=== PATIENT | female | born 1970 | race Caucasian/White ===

== ENCOUNTER 2022-01-17 23:20 | Emergency (ER) | payer SELFPAY ==
[2022-01-17 23:30] VITALS: BP 146/82; PULSE 87; RESP 20; TEMP 36.6; O2SAT 100; BMI 23.0
--- NOTE | 2022-01-17 23:43 | CRLHL7_ITS ---
For Patients: As a result of the Century Cures Act, medical imaging exams and procedure reports are released immediately into your electronic medical record. You may view this report before your referring provider. If you have questions, please contact your health care provider. INDICATION: Right flank pain TECHNIQUE: CT abdomen and pelvis without contrast. COMPARISON: None FINDINGS: Lower chest: Unremarkable. Liver: Unremarkable. Spleen: Unremarkable. Pancreas: Unremarkable. Gallbladder and bile ducts: The gallbladder is not clearly seen and may be collapsed or surgically absent. Adrenal glands: Unremarkable. Kidneys: Unremarkable. No kidney or ureteral stones and no hydronephrosis. GI tract: Multiple loops of dilated small bowel measuring to 5.0 cm. Transition point is not identified. Moderate amount of stool in the ascending colon. Remainder of the colon is decompressed. No free air or pneumatosis. Status post gastric surgery. Appendix is not seen. Vascular structures: Unremarkable. Lymph nodes: Unremarkable. Miscellaneous: Status post ventral herniorrhaphy. No free air or significant free fluid. Pelvic Organs: 4.5 x 3.6 cm cystic lesion in the right adnexa. Bones: Unremarkable for age. IMPRESSION: Small-bowel obstruction. A definite transition point is not seen on this exam. Greater than 4 cm cystic lesion in the right adnexa. Recommend outpatient pelvic ultrasound for further evaluation. Status post gastric surgery. The gallbladder is not seen and may be collapsed or surgically absent. Status post ventral herniorrhaphy. Please note that all CT scans at this facility use dose modulation, iterative reconstruction, and/or weight-based dosing when appropriate to reduce radiation dose to as low as reasonably achievable. Dictated by Katlyn Melendez MD @ 01/18/2022 1:32:57 AM (Electronically Signed)
--- NOTE | 2022-01-17 23:44 | ED_ITS ---
HPI - General Adult General Chief complaint: Flank Pain <Buzz Garcia MD - Last Filed: 01/18/22 00:22> Stated complaint: Blood in Urine <Buzz Garcia MD - Last Filed: 01/18/22 00:22> Time Seen by Provider: 01/17/22 23:37 <Buzz Garcia MD - Last Filed: 01/18/22 00:22> History of Present Illness HPI narrative: This 51-year-old female comes in reporting abdominal pain that began about 12 hours ago. She has a history of kidney stones. She states that the pain is more located on the right side now including some right flank pain. She has some increased pressure sensation when trying to void urine. She noted some william blood in her urine today. <Buzz Garcia MD - Last Filed: 01/18/22 00:22> Related Data Home medications: Home Medications Medication Instructions Recorded Confirmed No Known Home Medications 01/17/22 01/17/22 <Buzz Garcia MD - Last Filed: 01/18/22 00:22> Allergies/adverse reactions: Allergies Allergy/AdvReac Type Severity Reaction Status Date / Time No Known Drug Allergies Allergy Verified 01/17/22 23:34 <Buzz Garcia MD - Last Filed: 01/18/22 00:22> Review of Systems Status of ROS: Reports: 10 or more systems reviewed and unremarkable except as noted in History and below <Buzz Garcia MD - Last Filed: 01/18/22 00:22> Narrative: Constitutional: No fevers, no weight gain or loss. Eyes: No discharge. No vision changes. HENT: No congestion, no sore throat, no ear pain. Cardiovascular: No chest pain, no palpitations. Respiratory: No shortness of breath, no wheezes, no cough. Gastrointestinal: Abdominal pain with nausea as described above. Genitourinary: Increased pressure and gross hematuria. Musculoskeletal: Normal range of motion. Skin: No rashes, no pruritis. Neurological: No dizziness, weakness, sensory change, speech change. Endo/Heme/Allergies: No bruising or bleeding. No polydipsia. Pysch: no suicidality, no anxiety, no insomnia. All other systems reviewed and are negative. <Buzz Garcia MD - Last Filed: 01/18/22 00:22> [facility] Social History: Social History Smoking Status: Current every day smoker What tobacco products do you use: cigarettes Smoking packs per day: 1 Smoking cigarettes per day: 20.0 Years smoked: 12 Smoking pack-years: 12.00 Do you use any of these nicotine containing products: None Second hand tobacco smoke exposure: No How often do you have a drink containing alcohol: never AUDIT-C Alcohol total score: 0 Non-prescribed substance use: denies use <Buzz Garcia MD - Last Filed: 01/18/22 00:22> Exam Narrative: Exam Narrative: Constitutional: Well-developed, well-nourished, no acute distress. HEENT: Normocephalic, atraumatic. Neck: Normal range of motion. Nontender. Supple. Heart: Intact distal pulses. Lungs: No chest discomfort. No wheezes, rhonchi, or rales. Abdomen: Tenderness in the right abdomen with flank pain when percussing over her right kidney. Back: Normal range of motion. Extremities: Normal range of motion. No injury. Skin: Intact. No rash. Warm. No erythema or pallor. Neurologic: No altered sensation. No weakness. Alert and oriented. Psychiatric: No suicidality. No anxiety or depression. No insomnia. Nursing notes and vitals signs are reviewed. <Buzz Garcia MD - Last Filed: 01/18/22 00:22> Const: Vital Signs, click to edit/add: Vital Signs - 24 hr 01/17/22 23:30 Temperature 97.9 F Pulse Rate [Right Pulse Oximeter] 87 Respiratory Rate 20 Blood Pressure [Ri ght Upper Arm] 146/82 H Pulse Oximetry 100 Oxygen Delivery Me thod Room Air <Buzz Garcia MD - Last Filed: 01/18/22 00:22> Vital Signs, click to edit/add: Vital Signs - 24 hr 01/17/22 23:30 Temperature 97.9 F Pulse Rate [Right Pulse Oximeter] 87 Respiratory Rate 20 Blood Pressure [Ri ght Upper Arm] 146/82 H Pulse Oximetry 100 Oxygen Delivery Me thod Room Air <Henrry Olivera MD - Last Filed: 01/18/22 01:43> Course Reevaluation(s) Reevaluation #1: Labs are reassuring, CT scan demonstrates findings consistent with small- bowel obstruction. Patient recheck, she is sleeping comfortably. She reports bowel movement yesterday as well as passing gas in the emergency department. Tolerating oral intake in the department now. She is stable for discharge, liquid diet for 24 hours, follow-up with primary care regarding her adnexal cyst. <Henrry Olivera MD - Last Filed: 01/18/22 01:43> Time: 01:36 <Henrry Olivera MD - Last Filed: 01/18/22 01:43> Vital Signs Vital signs: Initial Vital Signs Temperature 97.9 F 01/17/22 23:30 Temperature Source Temporal Artery Scan 01/17/22 23:30 Pulse Rate 87 01/17/22 23:30 Pulse Rhythm 01/17/22 23:30 Pulse Strength 3+ Normal 01/17/22 23:30 Respiratory Rate 20 01/17/22 23:30 Blood Pressure 146/82 H 01/17/22 23:30 Blood Pressure Mean 103 01/17/22 23:30 Blood Pressure Position Sitting 01/17/22 23:30 Pulse Oximetry 100 01/17/22 23:30 Oxygen Delivery Method 01/17/22 23:30 Vital Signs Temperature 97.9 F 01/17/22 23:30 Pulse Rate 87 01/17/22 23:30 Respiratory Rate 20 01/17/22 23:30 Blood Pressure 146/82 H 01/17/22 23:30 Pulse Oximetry 100 01/17/22 23:30 Oxygen Delivery Method 01/17/22 23:30 Temperature 97.9 F 01/17/22 23:30 Pulse Rate 87 01/17/22 23:30 Respiratory Rate 20 01/17/22 23:30 Blood Pressure 146/82 H 01/17/22 23:30 Pulse Oximetry 100 01/17/22 23:30 Oxygen Delivery Method 01/17/22 23:30 <Buzz Garcia MD - Last Filed: 01/18/22 00:22> Initial Vital Signs Temperature 97.9 F 01/17/22 23:30 Temperature Source Temporal Artery Scan 01/17/22 23:30 Pulse Rate 87 01/17/22 23:30 Pulse Rhythm 01/17/22 23:30 Pulse Strength 3+ Normal 01/17/22 23:30 Respiratory Rate 20 01/17/22 23:30 Blood Pressure 146/82 H 01/17/22 23:30 Blood Pressure Mean 103 01/17/22 23:30 Blood Pressure Position Sitting 01/17/22 23:30 Pulse Oximetry 100 01/17/22 23:30 Oxygen Delivery Method 01/17/22 23:30 Vital Signs Temperature 97.9 F 01/17/22 23:30 Pulse Rate 87 01/17/22 23:30 Respiratory Rate 20 01/17/22 23:30 Blood Pressure 146/82 H 01/17/22 23:30 Pulse Oximetry 100 01/17/22 23:30 Oxygen Delivery Method 01/17/22 23:30 Temperature 97.9 F 01/17/22 23:30 Pulse Rate 87 01/17/22 23:30 Respiratory Rate 20 01/17/22 23:30 Blood Pressure 146/82 H 01/17/22 23:30 Pulse Oximetry 100 01/17/22 23:30 Oxygen Delivery Method 01/17/22 23:30 <Henrry Olivera MD - Last Filed: 01/18/22 01:43> Medical Decision Making MDM Narrative Medical decision making narrative: This 51-year-old female comes in with abdominal pain and right flank pain which is suspicious for a kidney stone. She did have gross hematuria also. She has a history of kidney stones. An IV was established where she received 4 mg of Zofran and Toradol [address] here and will be able to drive if this medicine provide sufficient relief. Urinalysis, lab results, and CT imaging results of the abdomen and pelvis are pending at the end of my shift. Care for this patient is transferred to Dr. Olivera. <Buzz Garcia MD - Last Filed: 01/18/22 00:22> Lab Data Labs: Lab Results 01/17/22 01/17/22 01/17/22 Range/Units 23:44 23:45 23:47 WBC 8.65 (4.50-11.00) K/uL RBC 4.98 (4.00-5.20) m/uL Hgb 10.3 L (12.0-16.0) gm/dL Hct 34.2 (33.0-51.0) % MCV 69 L (80-100) fL MCH 21 L (26-34) pg MCHC 30 L (32-36) gm/dL RDW Coeff of Wu 19.0 H (11.5-15.5) % Plt Count 510 H (140-440) K/uL Neut % (Auto) 71.3 (42.0-72.0) % Lymph % (Auto) 17.7 L (20-44) % [place] % (Auto) 5.1 (0.0-11.0) % Eos % (Auto) 4.7 (0.0-7.0) % Baso % (Auto) 0.6 (0.0-3.0) % Neut # (Auto) 6.17 (1.7-7.0) K/uL Lymph # (Auto) 1.50 (0.90-2.90) K/uL [place] # (Auto) 0.40 (0.00-0.90) K/UL Eos # (Auto) 0.41 (0.00-0.50) K/uL Baso # (Auto) 0.05 (0.00-0.30) K/uL Abs Immat Gran (auto) 0.05 (0.00-0.30) K/uL Sodium 135 (135-149) mmol/L Potassium 4.2 (3.6-5.1) mmol/L Chloride 103 (96-114) mmol/L Carbon Dioxide 25 (20-32) mmol/L BUN 17 (7-30) mg/dL Creatinine 0.5 (0.5-1.5) mg/dL Estimated Creat Clear 108.88 Estimated GFR 113 ml/min Glucose 113 (60-115) mg/dL Calcium 9.4 (8.4-10.6) mg/dL Urine Color Yellow (Yellow) Urine Appearance Cloudy A (Clear) Urine pH 6.0 (5.0-8.5) Ur Specific [place] 1.025 (1.000-1.030) Urine Protein Negative (Negative) Urine Glucose (UA) Negative (Negative) Urine Ketones Trace A (Negative) Urine Blood Trace-intact A (Negative) Urine Nitrite Negative (Negative) Urine Bilirubin Negative (Negative) Urine Urobilinogen 0.2 (0.2-1.0) Ur Leukocyte Esterase Trace A (Negative) Urine RBC 0-2 (0-2) Urine WBC 2-5 (0-5) Ur Squamous Epith Cells Moderate A (None-Few) Urine Bacteria Moderate A (None) <Buzz Garcia MD - Last Filed: 01/18/22 00:22> Lab Results 01/17/22 01/17/22 01/17/22 Range/Units 23:44 23:45 23:47 WBC 8.65 (4.50-11.00) K/uL RBC 4.98 (4.00-5.20) m/uL Hgb 10.3 L (12.0-16.0) gm/dL Hct 34.2 (33.0-51.0) % MCV 69 L (80-100) fL MCH 21 L (26-34) pg MCHC 30 L (32-36) gm/dL RDW Coeff of Wu 19.0 H (11.5-15.5) % Plt Count 510 H (140-440) K/uL Neut % (Auto) 71.3 (42.0-72.0) % Lymph % (Auto) 17.7 L (20-44) % [place] % (Auto) 5.1 (0.0-11.0) % Eos % (Auto) 4.7 (0.0-7.0) % Baso % (Auto) 0.6 (0.0-3.0) % Neut # (Auto) 6.17 (1.7-7.0) K/uL Lymph # (Auto) 1.50 (0.90-2.90) K/uL [place] # (Auto) 0.40 (0.00-0.90) K/UL Eos # (Auto) 0.41 (0.00-0.50) K/uL Baso # (Auto) 0.05 (0.00-0.30) K/uL Abs Immat Gran (auto) 0.05 (0.00-0.30) K/uL Sodium 135 (135-149) mmol/L Potassium 4.2 (3.6-5.1) mmol/L Chloride 103 (96-114) mmol/L Carbon Dioxide 25 (20-32) mmol/L BUN 17 (7-30) mg/dL Creatinine 0.5 (0.5-1.5) mg/dL Estimated Creat Clear 108.88 Estimated GFR 113 ml/min Glucose 113 (60-115) mg/dL Calcium 9.4 (8.4-10.6) mg/dL Urine Color Yellow (Yellow) Urine Appearance Cloudy A (Clear) Urine pH 6.0 (5.0-8.5) Ur Specific [place] 1.025 (1.000-1.030) Urine Protein Negative (Negative) Urine Glucose (UA) Negative (Negative) Urine Ketones Trace A (Negative) Urine Blood Trace-intact A (Negative) Urine Nitrite Negative (Negative) Urine Bilirubin Negative (Negative) Urine Urobilinogen 0.2 (0.2-1.0) Ur Leukocyte Esterase Trace A (Negative) Urine RBC 0-2 (0-2) Urine WBC 2-5 (0-5) Ur Squamous Epith Cells Moderate A (None-Few) Urine Bacteria Moderate A (None) <Henrry Olivera MD - Last Filed: 01/18/22 01:43> Imaging Data CT scan - abdomen: Attestation: I have reviewed the pertinent imaging results. <Henrry Olivera MD - Last Filed: 01/18/22 01:43> My impression: Small-bowel dilatation, no hydronephrosis or ureteral stones noted, also right adnexal cyst <Henrry Olivera MD - Last Filed: 01/18/22 01:43> Radiologist's impression: IMPRESSION: Small-bowel obstruction. A definite transition point is not seen on this exam. Greater than 4 cm cystic lesion in the right adnexa. Recommend outpatient pelvic ultrasound for further evaluation. Status post gastric surgery. The gallbladder is not seen and may be collapsed or surgically absent. Status post ventral herniorrhaphy. <Henrry Olivera MD - Last Filed: 01/18/22 01:43> Discharge Plan Discharge Clinical Impression: Abdominal pain, Adnexal cyst, Small bowel obstruction <Buzz Garcia MD - Last Filed: 01/18/22 00:22> Patient Disposition: Home, Self-Care <Buzz Garcia MD - Last Filed: 01/18/22 00:22> Condition: Improved <Buzz Garcia MD - Last Filed: 01/18/22 00:22> Instructions: Bowel Obstruction (ED) <Buzz Garcia MD - Last Filed: 01/18/22 00:22> Additional Instructions: Liquid diet for 24 hours. Take medication for nausea as prescribed. If you are having increasing pain or unable to tolerate liquids, return to the emergency department. There is a cyst on the right ovary. Should have an ultrasound with your primary care doctor to follow this. <Buzz Garcia MD - Last Filed: 01/18/22 00:22> Discharge Diet: Clear Liquid <Buzz Garcia MD - Last Filed: 01/18/22 00:22> Clear Liquid <Henrry Olivera MD - Last Filed: 01/18/22 01:43> Prescriptions: No Action No Known Home Medications <Buzz Garcia MD - Last Filed: 01/18/22 00:22> Follow Up/Referrals: Erica Adrian MD [Primary Care Provider] - <Buzz Garcia MD - Last Filed: 01/18/22 00:22> Stand Alone Forms: [employer] [facility] Info Instructions <Buzz Garcia MD - Last Filed: 01/18/22 00:22>
[2022-01-17] MEDS: ONDANSETRON 2 MG/ML inj 4 MG IVP (23:57)
[2022-01-17] MEDS: KETOROLAC 30 MG/ML inj IVP (23:57)
[2022-01-17 23:59] LABS: Basophils Absolute Auto 0.05 K/uL (0.00-0.30); Basophils Percent Auto 0.6 % (0.0-3.0); Eosinophils Absolute Auto 0.41 K/uL (0.00-0.50); Eosinophils Percent Auto 4.7 % (0.0-7.0); Hematocrit 34.2 % (33.0-51.0); Hemoglobin* 10.3 gm/dL (12.0-16.0); Immature Granulocytes Abs Auto 0.05 K/uL (0.00-0.30); Lymphocytes Percent Auto 17.7 % (20-44); Mean Corpuscular HGB Conc 30 gm/dL (32-36); Mean Corpuscular Hemoglobin 21 pg (26-34); Mean Corpuscular Volume 69 fL (80-100); Monocytes Percent Auto 5.1 % (0.0-11.0); Neutrophils Absolute Auto 6.17 K/uL (1.7-7.0); Neutrophils Percent Auto 71.3 % (42.0-72.0); Platelet Count* 510 K/uL (140-440); Red Blood Count 4.98 m/uL (4.00-5.20); White Blood Count* 8.65 K/uL (4.50-11.00)
[2022-01-18] LABS: Appearance Urine Cloudy (Clear); Bilirubin Urine Negative (Negative); Blood Urine Trace-intact (Negative); Color Urine Yellow (Yellow); Glucose Urine Negative (Negative); Ketones Urine Trace (Negative); Leukocyte Esterase Urine Trace (Negative); Nitrite Urine Negative (Negative); Protein Urine Negative (Negative); Specific Gravity Urine 1.025 (1.000-1.030); Urobilinogen Urine 0.2 (0.2-1.0)
[2022-01-18 00:04] LABS: Slide Review Reflex No
[2022-01-18 00:19] LABS: Bacteria Urine Moderate; RBC Urine 0-2 (0-2); Squamous Epithelial Cell Urine Moderate (None-Few)
[2022-01-18 00:22] LABS: Chloride* 103 mmol/L (96-114); Potassium* 4.2 mmol/L (3.6-5.1); Sodium* 135 mmol/L (135-149)
[2022-01-18 00:24] LABS: Blood Urea Nitrogen* 17 mg/dL (7-30); Carbon Dioxide* 25 mmol/L (20-32); Creatinine* 0.5 mg/dL (0.5-1.5); Est. Creatinine Clearance* 108.88; Estimated Glomerular Filt Rate 113 ml/min; Glucose* 113 mg/dL (60-115)
[2022-01-18 00:25] LABS: Calcium* 9.4 mg/dL (8.4-10.6)
[2022-01-18 01:49] VITALS: BP 116/73; PULSE 73; RESP 16; O2SAT 98
== END 2022-01-18 01:52 | disposition home or self-care (01) ==
PROVIDERS: Emergency Provider Emergency Medicine Emergency Medical Services; PCP Family Medicine
DX: N83.8 Other noninflammatory disorders of ovary, fallopian tube and broad ligament (principal); K56.609 Unspecified intestinal obstruction, unspecified as to partial versus complete obstruction
CPT/HCPCS: 36415; 74176; 80048; 81001; 85025; 87086; 96374; 96375; 99284; J1885; J2405

== ENCOUNTER 2022-02-20 11:45 | Inpatient (IN) | payer SELFPAY ==
[2022-02-20] VITALS (18 sets, daily range): BP systolic 126–166; BP diastolic 65–115; PULSE 75–101; RESP 12–18; TEMP 36.1–37.4; O2SAT 74–98
--- NOTE | 2022-02-20 14:36 | CRLHL7_ITS ---
For Patients: As a result of the 21st Century Cures Act, medical imaging exams and procedure reports are released immediately into your electronic medical record. You may view this report before your referring provider. If you have questions, please contact your health care provider. INDICATION: Abdominal pain and vomiting. TECHNIQUE: IV contrast-enhanced CT abdomen and pelvis. 59 mL Isovue-370 injected. COMPARISON: None. FINDINGS: Postoperative changes of gastric bypass. The pouch and a portion of the gastrojejunostomy are herniated above the diaphragm. Diffuse dilation of the small and large bowel with air and fluid, including the afferent and efferent limbs of the bypass. Transition point is within the mid abdomen on image 92 of series 2. This appears to be downstream of the jejunojejunostomy. There is some swirling of the mesentery in the area of the transition point and internal hernia is not excluded. No free air. No portal venous gas or pneumatosis. Solid organs are unremarkable. Gallbladder has been removed. The common bile duct is dilated measuring up to 2.2 cm and there is moderate intrahepatic biliary dilation. Mild soft tissue prominence at near the ampulla see image 41 of series 4. A 6 x 3 mm pulmonary nodule right middle lobe on image 3 of series 3. Prior ventral hernia repair. IMPRESSION: 1. Gastric bypass with herniation of the pouch and part of the gastrojejunostomy. 2. Small bowel obstruction with transition point in the mid abdomen almost certainly distal to the jejunojejunostomy. Cannot exclude internal hernia. 3. Dilated biliary tree with soft tissue prominence at the fibula broader. Correlation with liver enzymes, comparison with any prior abdominal imaging are recommended. ERCP she be considered when clinically appropriate. 4. 6 x 3 mm right middle lobe pulmonary nodule. [employer] GUID[employer]INES - SOLID NODULES: SINGLE LOW RISK - nodule less than 6 mm: No routine follow-up. - nodule 6-8 mm: CT at 6-12 months, then consider CT at 18-24 months. - nodule greater than 8 mm: Consider CT at 3 months, PET/CT or tissue sampling. SINGLE HIGH RISK - nodule less than 6 mm: Optional CT at 12 months. - nodule 6-8 mm: CT at 6-12 months, then CT at 18-24 months. - nodule greater than 8 mm: Consider CT at 3 months, PET/CT or tissue sampling. MULTIPLE LOW RISK - nodule less than 6 mm: No routine follow-up. - nodule 6-8 mm: CT at 3-6 months, then consider CT at 18-24 months. - nodule greater than 8 mm: CT at 3-6 months, then consider CT at 18-24 months. MULTIPLE HIGH RISK - nodule less than 6 mm: Optional CT at 12 months. - nodule 6-8 mm: CT at 3-6 months, then at 18-24 months. - nodule greater than 8 mm: CT at 3-6 months, then at 18-24 months. Dictated by Alex Oreilly MD @ 02/20/2022 4:21:52 PM Please note that all CT scans at this facility use dose modulation, iterative reconstruction, and/or weight-based dosing when appropriate to reduce radiation dose to as low as reasonably achievable. Dictated by: Alex Oreilly MD @ 02/20/2022 16:21:57 (Electronically Signed)
--- NOTE | 2022-02-20 14:38 | ED.GENADULT ---
HPI - General Adult General Chief complaint: Nausea/Vomiting Stated complaint: Nausea and vomiting for 3 days Time Seen by Provider: 02/20/22 14:29 History of Present Illness HPI narrative: This 51-year-old female comes in with her father who brings her in. She has had vomiting for the past 2-3 weeks. Prior to this she was losing weight. She does go to work but currently is living in a motel. She does arrive with normal vital signs but does have a dry mouth and continues to have episodes of nausea and vomiting. She complains of severe abdominal pain that she states is constant and has some spikes of worsening pain. She does not report any fever or diarrhea. She states that she is not on any medications and does not report any use of alcohol or street drugs. Related Data Home Medications Medication Instructions Recorded Confirmed No Known Home Medications 02/20/22 02/20/22 Allergies Allergy/AdvReac Type Severity Reaction Status Date / Time No Known Drug Allergies Allergy Verified 02/20/22 12:12 Review of Systems Status of ROS: Reports: 10 or more systems reviewed and unremarkable except as noted in History and below Narrative: Constitutional: No fevers. She has had unintentional weight loss recently. Eyes: No discharge. No vision changes. HENT: No congestion, no sore throat, no ear pain. Cardiovascular: No chest pain, no palpitations. Respiratory: No shortness of breath, no wheezes, no cough. Gastrointestinal: Abdominal pain with nausea and vomiting. Genitourinary: No dysuria, no hematuria. Musculoskeletal: Normal range of motion. Skin: No rashes, no pruritis. Neurological: No dizziness, weakness, sensory change, speech change. Endo/Heme/Allergies: No bruising or bleeding. No polydipsia. Pysch: no suicidality, no anxiety, no insomnia. All other systems reviewed and are negative. PFSH PFSH Medical History (Updated 02/20/22 @ 19:58 by Buzz Garcia MD) Anxiety Depression Surgical History (Updated 02/20/22 @ 19:33 by Alanna Edmondson MD) Gastric bypass status for obesity S/P appendectomy S/P cholecystectomy S/P repair of ventral hernia Social History (Updated 02/20/22 @ 19:33 by Alanna Edmondson MD) Narrative: Patient is a smoker, she denies drinking alcohol. She works as a CORPORATE EVENT PLANNER. Smoking Status: Smoker, status unknown Non-prescribed substance use: declined to answer Exam Narrative: Exam Narrative: Constitutional: She appears to be in distress related to vomiting and abdominal pain symptoms. HEENT: Normocephalic, atraumatic. Neck: Normal range of motion. Nontender. Supple. Heart: Regular. No murmurs. Normal rate. Intact distal pulses. Lungs: Clear to auscultation. No chest discomfort. No wheezes, rhonchi, or rales. Abdomen: Decreased bowel sounds. Diffuse tenderness. Rebound tenderness is present. Genitalia: Deferred. Back: No midline tenderness. Normal range of motion. Extremities: Normal range of motion. No injury. No pedal edema. Skin: Intact. No rash. Warm. No erythema or pallor. Neurologic: No altered sensation. No weakness. Alert and oriented. Psychiatric: No suicidality. No anxiety or depression. No insomnia. Nursing notes and vitals signs are reviewed. Const: Vital Signs, click to edit/add: Vital Signs - 24 hr 02/20/22 12:09 02/20/22 17:00 02/20/22 18:00 Temperature 97.0 F L Pulse Rate [Right Pulse Oximeter] 75 80 89 Respiratory Rate 18 18 16 Blood Pressure [Ri ght Upper Arm] 131/83 126/65 127/95 H Pulse Oximetry 98 98 89 Oxygen Delivery Me thod Room Air Room Air Room Air 02/20/22 18:30 02/20/22 18:45 Temperature Pulse Rate [Right Pulse Oximeter] 89 101 H Respiratory Rate 12 18 Blood Pressure [Ri ght Upper Arm] 141/109 H 143/115 H Pulse Oximetry 74 L 90 Oxygen Delivery Me thod Room Air Room Air Course Vital Signs Vital signs: Initial Vital Signs Temperature 97.0 F L 02/20/22 12:09 Temperature Source Temporal Artery Scan 02/20/22 12:09 Pulse Rate 75 02/20/22 12:09 Respiratory Rate 18 02/20/22 12:09 Blood Pressure 131/83 02/20/22 12:09 Blood Pressure Mean 99 02/20/22 12:09 Blood Pressure Position Sitting 02/20/22 12:09 Pulse Oximetry 98 02/20/22 12:09 Oxygen Delivery Method 02/20/22 12:09 Vital Signs Temperature 97.0 F L 02/20/22 12:09 Pulse Rate 75 02/20/22 12:09 Respiratory Rate 18 02/20/22 12:09 Blood Pressure 131/83 02/20/22 12:09 Pulse Oximetry 98 02/20/22 12:09 Oxygen Delivery Method 02/20/22 12:09 Temperature 97.0 F L 02/20/22 12:09 Pulse Rate 101 H 02/20/22 18:45 Respiratory Rate 18 02/20/22 18:45 Blood Pressure 143/115 H 02/20/22 18:45 Pulse Oximetry 90 02/20/22 18:45 Oxygen Delivery Method 02/20/22 18:45 Medical Decision Making MDM Narrative Medical decision making narrative: This patient comes in with severe abdominal pain and associated anorexia. An IV was established where she received a L of normal saline, Dilaudid 0.5 mg, and Zofran [address] scan of the abdomen and pelvis is obtained and returns with evidence of the bowel obstruction likely complicated by her gastric bypass that occurred decades ago. I did consult with the surgeon on-call, Dr. Tenorio, who reviewed images and recommended surgery sooner than later. There were no beds available for transfer so Dr. Souza's and did take her to surgery at this facility. She will be admitted to the hospital postoperatively. Lab Data Labs: Lab Results 02/20/22 02/20/22 02/20/22 Range/Units 15:08 15:08 15:08 WBC 6.81 (4.50-11.00) K/uL RBC 6.61 H (4.00-5.20) m/uL Hgb 13.6 (12.0-16.0) gm/dL Hct 44.0 (33.0-51.0) % MCV 67 L (80-100) fL MCH 21 L (26-34) pg MCHC 31 L (32-36) gm/dL RDW Coeff of Wu 20.5 H (11.5-15.5) % Plt Count 486 H (140-440) K/uL Neut % (Auto) 66.1 (42.0-72.0) % Lymph % (Auto) 19.1 L (20-44) % [place] % (Auto) 13.4 H (0.0-11.0) % Eos % (Auto) 1.0 (0.0-7.0) % Baso % (Auto) 0.3 (0.0-3.0) % Neut # (Auto) 4.50 (1.7-7.0) K/uL Lymph # (Auto) 1.30 (0.90-2.90) K/uL [place] # (Auto) 0.90 (0.00-0.90) K/UL Eos # (Auto) 0.07 (0.00-0.50) K/uL Baso # (Auto) 0.02 (0.00-0.30) K/uL Abs Immat Gran (auto) 0.01 (0.00-0.30) K/uL Sodium 137 (135-149) mmol/L Potassium 4.1 (3.6-5.1) mmol/L Chloride 94 L (96-114) mmol/L Carbon Dioxide 25 (20-32) mmol/L BUN 44 H (7-30) mg/dL Creatinine 0.9 (0.5-1.5) mg/dL Estimated GFR 77 ml/min Glucose 119 H (60-115) mg/dL Calcium 9.7 (8.4-10.6) mg/dL Total Bilirubin 0.7 Cancelled (0.1-1.5) mg/dL Direct Bilirubin 0.2 Cancelled (0.0-0.5) mg/dL AST 34 Cancelled (12-35) U/L ALT 23 Cancelled (4-35) U/L Alkaline Phosphatase 99 Cancelled (40-150) U/L Total Protein 8.3 Cancelled (6.0-8.3) g/dL Albumin 5.1 H Cancelled (3.3-5.0) g/dL Lipase 48 Cancelled (23-300) U/L TSH (0.270-4.20) uIU/mL 02/20/22 02/20/22 Range/Units 15:08 16:00 WBC (4.50-11.00) K/uL RBC (4.00-5.20) m/uL Hgb (12.0-16.0) gm/dL Hct (33.0-51.0) % MCV (80-100) fL MCH (26-34) pg MCHC (32-36) gm/dL RDW Coeff of Wu (11.5-15.5) % Plt Count (140-440) K/uL Neut % (Auto) (42.0-72.0) % Lymph % (Auto) (20-44) % [place] % (Auto) (0.0-11.0) % Eos % (Auto) (0.0-7.0) % Baso % (Auto) (0.0-3.0) % Neut # (Auto) (1.7-7.0) K/uL Lymph # (Auto) (0.90-2.90) K/uL [place] # (Auto) (0.00-0.90) K/UL Eos # (Auto) (0.00-0.50) K/uL Baso # (Auto) (0.00-0.30) K/uL Abs Immat Gran (auto) (0.00-0.30) K/uL Sodium (135-149) mmol/L Potassium (3.6-5.1) mmol/L Chloride (96-114) mmol/L Carbon Dioxide (20-32) mmol/L BUN (7-30) mg/dL Creatinine (0.5-1.5) mg/dL Estimated GFR ml/min Glucose (60-115) mg/dL Calcium (8.4-10.6) mg/dL Total Bilirubin (0.1-1.5) mg/dL Direct Bilirubin (0.0-0.5) mg/dL AST (12-35) U/L ALT (4-35) U/L Alkaline Phosphatase (40-150) U/L Total Protein (6.0-8.3) g/dL Albumin 4.5 (3.3-5.0) g/dL Lipase (23-300) U/L TSH 1.350 (0.270-4.20) uIU/mL Imaging Data CT scan - abdomen: Radiologist's impression: FINDINGS: Postoperative changes of gastric bypass. The pouch and a portion of the gastrojejunostomy are herniated above the diaphragm. Diffuse dilation of the small and large bowel with air and fluid, including the afferent and efferent limbs of the bypass. Transition point is within the mid abdomen on image 92 of series 2. This appears to be downstream of the jejunojejunostomy. There is some swirling of the mesentery in the area of the transition point and internal hernia is not excluded. No free air. No portal venous gas or pneumatosis. Solid organs are unremarkable. Gallbladder has been removed. The common bile duct is dilated measuring up to 2.2 cm and there is moderate intrahepatic biliary dilation. Mild soft tissue prominence at near the ampulla see image 41 of series 4. A 6 x 3 mm pulmonary nodule right middle lobe on image 3 of series 3. Prior ventral hernia repair. IMPRESSION: 1. Gastric bypass with herniation of the pouch and part of the gastrojejunostomy. 2. Small bowel obstruction with transition point in the mid abdomen almost certainly distal to the jejunojejunostomy. Cannot exclude internal hernia. 3. Dilated biliary tree with soft tissue prominence at the fibula broader. Correlation with liver enzymes, comparison with any prior abdominal imaging are recommended. ERCP she be considered when clinically appropriate. 4. 6 x 3 mm right middle lobe pulmonary nodule. Discharge Plan Discharge Clinical Impression: Small bowel obstruction Patient Disposition: Admitted As Inpatient Condition: Unchanged
[2022-02-20] MEDS: 0.9 % SODIUM CHLORIDE 1000 ml 1,000 ML IV (15:21)
[2022-02-20] MEDS: HYDROmorphone 0.5 mg/0.5 ml inj IVP ×3 (15:22→23:24)
[2022-02-20] MEDS: ONDANSETRON 2 MG/ML inj 4 MG IVP (15:22)
[2022-02-20 15:33] LABS: Basophils Absolute Auto 0.02 K/uL (0.00-0.30); Basophils Percent Auto 0.3 % (0.0-3.0); Eosinophils Absolute Auto 0.07 K/uL (0.00-0.50); Hemoglobin* 13.6 gm/dL (12.0-16.0); Immature Granulocytes Abs Auto 0.01 K/uL (0.00-0.30); Lymphocytes Percent Auto 19.1 % (20-44); Mean Corpuscular HGB Conc 31 gm/dL (32-36); Mean Corpuscular Hemoglobin 21 pg (26-34); Mean Corpuscular Volume 67 fL (80-100); Monocytes Percent Auto 13.4 % (0.0-11.0); Neutrophils Percent Auto 66.1 % (42.0-72.0); Platelet Count* 486 K/uL (140-440); RDW Coefficient of Variation % 20.5 % (11.5-15.5); Red Blood Count 6.61 m/uL (4.00-5.20); White Blood Count* 6.81 K/uL (4.50-11.00)
[2022-02-20 15:36] LABS: Slide Review Reflex No
[2022-02-20 15:46] LABS: Albumin* 5.1 g/dL (3.3-5.0); Chloride* 94 mmol/L (96-114)
[2022-02-20 15:47] LABS: Potassium* 4.1 mmol/L (3.6-5.1); Sodium* 137 mmol/L (135-149)
[2022-02-20 15:49] LABS: Bilirubin Direct* 0.2 mg/dL (0.0-0.5); Bilirubin Total* 0.7 mg/dL (0.1-1.5); Carbon Dioxide* 25 mmol/L (20-32); Creatinine* 0.9 mg/dL (0.5-1.5); Estimated Glomerular Filt Rate 77 ml/min
[2022-02-20 15:50] LABS: Alanine Aminotransferase* 23 U/L (4-35); Alkaline Phosphatase* 99 U/L (40-150); Aspartate Amino Transferase* 34 U/L (12-35); Blood Urea Nitrogen* 44 mg/dL (7-30); Calcium* 9.7 mg/dL (8.4-10.6); Glucose* 119 mg/dL (60-115); Lipase* 48 U/L (23-300); Total Protein* 8.3 g/dL (6.0-8.3)
--- NOTE | 2022-02-20 18:36 | ED.NURSE ---
attempted to insert the NG in the right nare and patient wanting the NG removed. Had staff get the MD or Surgeon in the room to agree with this as patient was coughing, gaging, and spitting up clear liquid from the mouth. Surgeon agreed to remove and did so. Surgeon is consulting and talking with patient.
[2022-02-20 18:47] LABS: Albumin* 4.5 g/dL (3.3-5.0)
--- NOTE | 2022-02-20 19:00 | ED.NURSE ---
1819--patient's monitor went off and pulse ox is reading very low at 30% the right finger is cold moved the pulse ox to left hand and placed sideways on the finger as has nail [place] on that unable to remove. patient was deep sleeping and called name woke up like out of a deep sleep taking an deep breath. patient is pink and not blue noted the pulse ox to increase to 98-100% on nonrebreather on and great wave form noted on the monitor.
--- NOTE | 2022-02-20 19:22 | PM.GSHP ---
History of Present Illness History of Present Illness Date Seen: 02/20/22 Chief complaint: Nausea and vomiting for 3 days Narrative: Brenna Winslow is a 51 year old female with history of gastric bypass was brought to the emergency room by her dad with abdominal pain and vomiting. Patient states that since Tuesday she has been having episodes of severe abdominal pain. The pain was described as sharp and coming in waves. She has been passing gas with the last gas most likely yesterday. Her last bowel movement was earlier in the week. Patient has not be eating since Tuesday because of this abdominal pain. She also had multiple episodes of vomiting. In the emergency room patient was found to have a normal WBC. Her BUN was elevated suggestive of dehydration. An abdominal CT was obtained that showed dilated loops of small intestine with a transition point in the mid abdomen. There was also evidence of possible mesenteric swirling that is concerning for a possible internal hernia. Patient's gastric remnant is also dilated. Review of Systems Narrative: General: no fevers CV: no shortness of breath Resp: no cough GI: See above : no dysuria, no increased urinary frequency, no hematuria Skin: no new rashes Musculoskeletal: no back pain Neuro: no muscle weakness Psyche: anxiety PFSH PFSH Medical History (Updated 02/20/22 @ 19:58 by Buzz Garcia MD) Anxiety Depression Surgical History (Updated 02/20/22 @ 19:33 by Alanna Edmondson MD) Gastric bypass status for obesity S/P appendectomy S/P cholecystectomy S/P repair of ventral hernia Social History (Updated 02/20/22 @ 19:33 by Alanna Edmondson MD) Narrative: Patient is a smoker, she denies drinking alcohol. She works as a [employer] HELPER. Smoking Status: Smoker, status unknown Non-prescribed substance use: declined to answer Meds Home Medications and Allergies Home Medications Medication Instructions Recorded Confirmed Type No Known Home Medications 02/20/22 02/20/22 History Allergies Allergy/AdvReac Type Severity Reaction Status Date / Time No Known Drug Allergies Allergy Verified 02/20/22 12:12 Exam Narrative: Exam Narrative: General appearance: Alert, cooperative, and in no distress Pulmonary: Chest symmetric, lungs clear bilaterally Cardiovascular Heart: Regular rate and rhythm, S1, S2, no murmurs/rubs/gallops Gastrointestinal Abdominal: soft, distended, tender to palpation throughout the abdomen and diffusely tender to percussion. Skin: Normal skin color, texture, and turgor. No rashes or lesions. Psychiatric: Alert, cooperative, normal affect. Const: Vital Signs, click to edit/add: Vital Signs - 24 hr 02/20/22 12:09 02/20/22 17:00 02/20/22 18:00 Temperature 97.0 F L Pulse Rate [Right Pulse Oximeter] 75 80 89 Respiratory Rate 18 18 16 Blood Pressure [Ri ght Upper Arm] 131/83 126/65 127/95 H Pulse Oximetry 98 98 89 Oxygen Delivery Me thod Room Air Room Air Room Air 02/20/22 18:30 02/20/22 18:45 Temperature Pulse Rate [Right Pulse Oximeter] 89 101 H Respiratory Rate 12 18 Blood Pressure [Ri ght Upper Arm] 141/109 H 143/115 H Pulse Oximetry 74 L 90 Oxygen Delivery Me thod Room Air Room Air Results Results Abdomen CT scan report/results: report reviewed and image reviewed Assessment and Plan Assessment and plan (1) Small bowel obstruction: Status: Acute Plan 51-year-old female presents with abdominal pain that is most likely due to small-bowel obstruction. I discussed with the patient my clinical findings and her CT findings. Patient had 1 of her painful episodes while I was interviewing her in the emergency room and I was able to witness the pain was intense and lasted only a few seconds but patient was very uncomfortable. Patient is dry by her laboratory values however her WBC is normal. I discussed with the patient that gastric bypass is not my specialty and we usually transfer patients like her to the tertiary center where a bypass surgeon is available. However, there are no beds available in tertiary centers of the entire [facility] area. Given the fact that patient might have an internal hernia causing her obstruction and there is a clear transition point, I recommended to proceed with exploratory laparotomy. I discussed with the patient that she has a large intraperitoneal mesh that will be making the surgery more complex. The procedure was discussed in detail. The risks associated the procedure including infection, bleeding, hernia recurrence, nonhealing of the midline incision, small-bowel resection, possible gastrostomy tube placement, and possible revision of her jejunojejunostomy were all discussed with the patient, and she agreed to proceed.
[2022-02-20] MEDS: LACTATED RINGERS 1000 ML 1,000 ML 100 ML IV ×2 (19:49→21:00)
[2022-02-20] MEDS: PIPERACILLIN/TAZOBACTAM 3.375 GM in 0.9 % SODIUM CHLORIDE Mini-bag 100 ML IVPB (20:00)
--- NOTE | 2022-02-20 20:42 | SUR.OPER ---
NG TUBE PLACEMENT PER MD REQUEST, DONE BY EMERGENCY VETERINARY ASSISTANT AT 2042; NOT INDWELLING
--- NOTE | 2022-02-20 22:32 | PM.GSPRC ---
Operative Note Date of procedure: 02/20/22 Type of Procedure: 1. Exploratory laparotomy. 2. Lysis of adhesions. 3. Open gastrostomy tube placement. Procedure Description: After discussing the risks and benefits of the procedure, the patient signed informed consent.? The operative site was marked and the patient was brought to the operating room and placed on the operating table in supine position.? Care was taken to pad the patient's pressure points.?? The patient was then intubated by anesthesia.? The Gardner catheter was placed under sterile conditions.? The operative site was then prepped and draped in the usual sterile fashion.? A time-out was then performed. ? A midline laparotomy incision was made superior to the umbilicus with a scalpel. Subcutaneous fat was dissected with cautery down to the anterior fascia. The anterior fascia was grasped with Monica clamps and incised with suture scissors. Patient's intraperitoneal mesh was identified and grasped with Latia clamps. This was incised with suture scissors. Abdomen was entered and abdominal wall was palpated. No adhesions to the mesh were noted in the midline. The mesh was then incised superiorly to extend the incision towards the xiphoid process. Largely dilated loops of bowel were noted. A medium-sized Ken retractor was placed and the loops of bowel were eviscerated segmentally. There was a dense adhesion in the right upper quadrant that was clamped with right angle clamps, divided, and tied with Vicryl ties for hemostasis. There was another adhesion in the pelvis that was palpated. This was also dense and was clamped with right angle clamps, divided and tied with Vicryl ties. After this adhesion was divided, I was able to eviscerate the bowel from the pelvis. Decompressed loops of small intestine were then pulled into the field and a clear transition point was visualized. This adhesion was the culprit of patient's internal hernia. Small intestine at this transition point was open and viable. The small intestine was ran from the terminal ileum towards the jejunojejunostomy. A small serosal tear was oversewn with 3-0 silk sutures. At the level of jejuno- jejunostomy the anatomy was not as clear. Multiple adhesions were noted in the right upper quadrant near the liver and duodenum. Those adhesions were not lysed. The Isaura retractor was then removed. In order to visualize the gastric remnant, we extended our incision superiorly. The mesh was divided with scissors as well. Adhesions of the stomach and left lobe of the liver were taken down with cautery. The gastric remnant was finally identified and brought into the view with a [place]. The gastric remnant was dilated. I elected to proceed with open gastrostomy to decompress the gastric remnant and the rest of the small intestine. A pursestring suture was placed in the anterior greater curvature of the stomach with 2-0 silk suture. Stay sutures of the stomach to the abdominal wall were placed right superiorly and left superiorly. An area of abdominal wall without mesh for gastrostomy tube placement was identified. The abdominal wall was palpated and the mesh was just inferior to it. A skin incision was made with a scalpel. Subcutaneous fat and muscle were divided with cautery. The posterior sheath and peritoneum were also divided with cautery. The 24 Italian gastrostomy tube was then placed through this gastrostomy incision into the abdomen. A gastrotomy was made in the center of the pursestring suture. Thin bilious liquid came out from the gastrotomy and this was suctioned out. The gastrostomy tube was then advanced into the stomach and balloon was inflated with 9 mL of sterile water. The pursestring suture was tied around the gastrostomy tube. The previously placed stay sutures were then tied. A third stay suture was placed to secure the stomach to the abdominal wall with 2-0 silk suture. The gastrostomy tube bumper was at 4 cm. We then proceeded with incisional closure. Omentum was placed over the dilated small intestine. The midline incision was closed with 2 running 0-0 Maxon sutures. Additional [id number] 0-0 Prolene sutures were placed during the closure every 2-3 cm. The midline laparotomy incision was then irrigated with normal saline. Subcutaneous fat was reapproximated with 3-0 Vicryl sutures. The skin was then closed with linda. The gastrostomy tube bumper was secured to the skin with an interrupted nylon suture. Sterile dressings were then applied. ? The patient was then woken and transported to the recovery area in stable condition. ? The patient tolerated the procedure well. Findings: A few adhesions with 1 definite adhesion causing the transition point and internal hernia. Dilated gastric remnant. Anesthesia: GETA Surgeon: Alanna Edmondson MD Estimated blood loss (mL): 10 Condition: stable Disposition: PACU
--- NOTE | 2022-02-20 22:56 | P.NB_ITS ---
Nerve Block Nerve Block Time Seen by Provider: 22:35 Date Seen: 02/20/22 Type of block requested by surgeon for post-operative analgesia: TAP Side: bilateral Time out performed: Yes Verification of patient name: Yes Verification of date of : Yes Site marking: site marked Name of person performing procedure: adilene Continuous monitoring Was continuous monitoring of O2 sat, B/P, satellite project site monitor, recorded every 15 minutes?: Yes Procedure Checklist: sterile prep, needles and gloves Ultrasound guided. Images saved: Yes Medications given in 5ml increments after negative aspiration: Marcaine %: 0.25 mL: 30 Needle gauge: 22 and Exparel mL: 10 Needle gauge: 22 Patient tolerated procedure well: Yes Block Charges Block Charge (with Pro Fee): TAP Bilateral Use of Ultrasound Machine for Block: Yes- US Guidance/pain block
--- NOTE | 2022-02-20 22:58 | W.ANESCHARGE ---
Anesthesia Charges Start Date/Time Anesthesia Start Date: 02/20/22 Anesthesia Start Time: 19:49 Stop Date/Time Anesthesia Stop Date: 02/20/22 Anesthesia Stop Time: 22:51 Summary Emergency: Yes
[2022-02-20 23:11] LABS: SARS PCR* Negative SARS-CoV-2 (Negative)
[2022-02-21] VITALS (16 sets, daily range): BP systolic 114–159; BP diastolic 69–89; PULSE 80–106; RESP 16–18; TEMP 36.7–37.3; O2SAT 93–100; BMI 21.3
[2022-02-21] MEDS: LACTATED RINGERS 1000 ML 1,000 ML 75 ML IV ×2 (00:13→14:51)
[2022-02-21] MEDS: HYDROmorphone 0.5 mg/0.5 ml inj IVP ×9 (01:24→20:53)
[2022-02-21] MEDS: ONDANSETRON 2 MG/ML inj IVP (03:23)
[2022-02-21] MEDS: 0.9 % SODIUM CHLORIDE 250 ml IV (03:24)
[2022-02-21] MEDS: PIPERACILLIN/TAZOBACTAM 3.375 GM in 0.9 % SODIUM CHLORIDE Mini-bag 100 ML IVPB ×4 (03:24→20:53)
[2022-02-21 06:56] LABS: Basophils Absolute Auto 0.01 K/uL (0.00-0.30); Basophils Percent Auto 0.2 % (0.0-3.0); Eosinophils Absolute Auto 0.05 K/uL (0.00-0.50); Hematocrit 39.4 % (33.0-51.0); Hemoglobin* 12.1 gm/dL (12.0-16.0); Immature Granulocytes Abs Auto 0.02 K/uL (0.00-0.30); Mean Corpuscular HGB Conc 31 gm/dL (32-36); Mean Corpuscular Hemoglobin 21 pg (26-34); Mean Corpuscular Volume 68 fL (80-100); Monocytes Percent Auto 8.4 % (0.0-11.0); Platelet Count* 514 K/uL (140-440); RDW Coefficient of Variation % 20.3 % (11.5-15.5); Red Blood Count 5.77 m/uL (4.00-5.20); White Blood Count* 4.77 K/uL (4.50-11.00)
[2022-02-21 07:03] LABS: Slide Review Acceptable Review (Acceptable); Slide Review Reflex Yes
[2022-02-21 07:18] LABS: Chloride* 105 mmol/L (96-114)
[2022-02-21 07:19] LABS: Potassium* 3.7 mmol/L (3.6-5.1); Sodium* 136 mmol/L (135-149)
[2022-02-21 07:21] LABS: Creatinine* 1.1 mg/dL (0.5-1.5); Est. Creatinine Clearance* 49.49; Estimated Glomerular Filt Rate 60 ml/min
[2022-02-21 07:22] LABS: Blood Urea Nitrogen* 39 mg/dL (7-30); Calcium* 8.3 mg/dL (8.4-10.6); Carbon Dioxide* 24 mmol/L (20-32); Glucose* 95 mg/dL (60-115)
--- NOTE | 2022-02-21 07:31 | PC.NURSE ---
Patient arrived from the PACU at 2345. Pleasant and cooperative. Sleepy during noc. Zofran x1 for mild nausea. Tolerating ice chips. Dilaudid x3 for 7-8/10 pain. Gardner patent. Gastrostomy tube patent and draining brown contents. Active ice to abdomen. Abdominal binder in place. Midline dressing to abdomen C/D/I. Dressing for gastrostomy tube with moderate amount of serous drainage at insertion site.
[2022-02-21] MEDS: SODIUM CHLORIDE 0.9 % (FLUSH) 10 ML SYRINGE IVF (08:26)
[2022-02-21] MEDS: HYDROCODONE-ACETAMIN 5-325 MG 1 TAB PO (10:04)
--- NOTE | 2022-02-21 10:51 | P.GSPN_ITS ---
Subjective Subjective Date Seen: 02/21/22 Interval history: Patient did well overnight. She complains of pain but the pain is different and better controlled now. She feels very thirsty and is trying to get water. G- tube is open to gravity. Exam Narrative: Exam Narrative: Abdomen: Soft, not distended, diffusely tender to palpation, G-tube open to gravity. The midline laparotomy incision with clean dressing. The abdominal binder was placed on the patient. Const: Vital Signs, click to edit/add: Vital Signs - 24 hr 02/20/22 12:09 02/20/22 17:00 02/20/22 18:00 Temperature 97.0 F L Pulse Rate Pulse Rate [Right Pulse Oximeter] 75 80 89 Pulse Rate [Right] Respiratory Rate 18 18 16 Blood Pressure Blood Pressure [Ri ght Arm] Blood Pressure [Ri ght Upper Arm] 131/83 126/65 127/95 H Pulse Oximetry 98 98 89 Oxygen Delivery Me thod Room Air Room Air Room Air 02/20/22 18:30 02/20/22 18:45 02/20/22 19:30 Temperature Pulse Rate Pulse Rate [Right Pulse Oximeter] 89 101 H 99 Pulse Rate [Right] Respiratory Rate 12 18 16 Blood Pressure Blood Pressure [Ri ght Arm] Blood Pressure [Ri ght Upper Arm] 141/109 H 143/115 H 142/100 H Pulse Oximetry 74 L 90 93 Oxygen Delivery Me thod Room Air Room Air Room Air 02/20/22 22:45 02/20/22 22:50 02/20/22 22:55 Temperature 98.7 F Pulse Rate 93 90 84 Pulse Rate [Right Pulse Oximeter] Pulse Rate [Right] Respiratory Rate 16 16 16 Blood Pressure 146/97 H 148/96 H 156/92 H Blood Pressure [Ri ght Arm] Blood Pressure [Ri ght Upper Arm] Pulse Oximetry 96 97 98 Oxygen Delivery Me thod Room Air 02/20/22 23:00 02/20/22 23:05 02/20/22 23:10 Temperature Pulse Rate 82 80 77 Pulse Rate [Right Pulse Oximeter] Pulse Rate [Right] Respiratory Rate 14 16 14 Blood Pressure 166/96 H 163/93 H 157/93 H Blood Pressure [Ri ght Arm] Blood Pressure [Ri ght Upper Arm] Pulse Oximetry 97 98 97 Oxygen Delivery Me thod 02/20/22 23:20 02/20/22 23:25 02/20/22 23:30 Temperature Pulse Rate 85 79 90 Pulse Rate [Right Pulse Oximeter] Pulse Rate [Right] Respiratory Rate 12 12 14 Blood Pressure 152/89 H 157/94 H 155/89 H Blood Pressure [Ri ght Arm] Blood Pressure [Ri ght Upper Arm] Pulse Oximetry 93 92 94 Oxygen Delivery Me thod 02/20/22 23:35 02/20/22 23:40 02/20/22 23:45 Temperature 99.3 F 98.3 F Pulse Rate 80 84 83 Pulse Rate [Right Pulse Oximeter] Pulse Rate [Right] Respiratory Rate 14 16 18 Blood Pressure 158/88 H 161/87 H Blood Pressure [Ri ght Arm] 148/88 H Blood Pressure [Ri ght Upper Arm] Pulse Oximetry 96 95 Oxygen Delivery Me thod Room Air 02/20/22 23:45 02/21/22 00:00 02/21/22 00:15 Temperature 98.3 F 98.3 F 98.9 F Pulse Rate Pulse Rate [Right Pulse Oximeter] Pulse Rate [Right] 83 80 87 Respiratory Rate 18 18 18 Blood Pressure Blood Pressure [Ri ght Arm] 148/88 H 159/89 H 152/87 H Blood Pressure [Ri ght Upper Arm] Pulse Oximetry 95 95 94 Oxygen Delivery Me thod Room Air Room Air Room Air 02/21/22 00:30 02/21/22 00:45 02/21/22 01:15 Temperature 98.9 F 98.9 F 98.9 F Pulse Rate Pulse Rate [Right Pulse Oximeter] Pulse Rate [Right] 92 92 92 Respiratory Rate 18 16 16 Blood Pressure Blood Pressure [Ri ght Arm] 136/78 141/80 H 125/82 Blood Pressure [Ri ght Upper Arm] Pulse Oximetry 98 97 98 Oxygen Delivery Me thod Room Air Room Air Room Air 02/21/22 01:45 02/21/22 03:00 02/21/22 03:00 Temperature 99.2 F 98.3 F Pulse Rate Pulse Rate [Right Pulse Oximeter] Pulse Rate [Right] 91 83 Respiratory Rate 16 18 18 Blood Pressure Blood Pressure [Ri ght Arm] 139/80 148/88 H Blood Pressure [Ri ght Upper Arm] Pulse Oximetry 100 95 95 Oxygen Delivery Me thod Room Air Room Air Room Air 02/21/22 02:45 02/21/22 03:45 02/21/22 04:45 Temperature 98.9 F 98.9 F 98.3 F Pulse Rate Pulse Rate [Right Pulse Oximeter] Pulse Rate [Right] 98 100 99 Respiratory Rate 18 16 16 Blood Pressure Blood Pressure [Ri ght Arm] 128/83 123/86 119/76 Blood Pressure [Ri ght Upper Arm] Pulse Oximetry 94 94 95 Oxygen Delivery Me thod Room Air Room Air Room Air 02/21/22 06:00 Temperature 98.3 F Pulse Rate Pulse Rate [Right Pulse Oximeter] Pulse Rate [Right] 99 Respiratory Rate 16 Blood Pressure Blood Pressure [Ri ght Arm] 125/86 Blood Pressure [Ri ght Upper Arm] Pulse Oximetry 95 Oxygen Delivery Me thod Room Air Progress Note: A&P Assessment and plan (1) Small bowel obstruction: Status: Acute Assessment and Plan: 51-year-old female s/p exploratory laparotomy with lysis of adhesions and open gastrostomy tube POD 1. Patient did well overnight. Will DC her Gardner catheter today. I explained to the patient that she can only take ice chips for comfort but should be strict NPO for now. She does not have an NG tube since were not able to safely place i t intraoperatively. Patient's gastrostomy tube is open to gravity. Will continue IV antibiotics due to gastric juice contamination of intra-abdominal cavity from gastric remnant. I discussed with the patient to ambulate at least 3 times today. Will start her on Lovenox for DVT prophylaxis.
[2022-02-21] MEDS: ENOXAPARIN 40 MG/0.4 ML INJ SUBCUT (11:25)
--- NOTE | 2022-02-21 18:40 | PC.NURSE ---
Pt has had difficulty with pain control this shift pain 6.5-9 out of 10. Eval by Dr. Cerda. Pt ambulated once and states she will walk again when pain diminishes. Recommend 4-6 walks in the hallway per shift. NPO strict except for ice chips. Pt did have some free water this morning prior to surgeon rounding. Pt's pedraza discontinued prior to 3PM, she has not voided yet. Gastrostomy drain drsg changed secondary to serosanguinous drainage and abdominal binder removed d/to increased pressure. Once binder unlatched flow improved from Gastrostomy and pt verbalized relief. Midline dressing is CDI, well adhered with linda visualized. Please see eMar for meds given on 12 hour day shift. Report to oncoming shift JEANNE Moreno will be given.
[2022-02-21] MEDS: 0.9 % SODIUM CHLORIDE 500 ML 500 ML IV (22:00)
[2022-02-22] MEDS: HYDROmorphone 0.5 mg/0.5 ml inj IVP ×7 (02:33→21:09)
[2022-02-22] MEDS: PIPERACILLIN/TAZOBACTAM 3.375 GM in 0.9 % SODIUM CHLORIDE Mini-bag 100 ML IVPB ×4 (02:54→21:08)
[2022-02-22] MEDS: 0.9 % SODIUM CHLORIDE 250 ml IV (02:55)
[2022-02-22 03:00] VITALS: BP 97/61; PULSE 90; RESP 16; TEMP 36.8; O2SAT 96
[2022-02-22] MEDS: LACTATED RINGERS 1000 ML 1,000 ML 100 ML IV ×2 (03:40→17:36)
[2022-02-22] MEDS: ONDANSETRON 2 MG/ML inj 4 MG IVP (05:59)
--- NOTE | 2022-02-22 06:35 | PC.NURSE ---
[id number]: Patient rested most of shift. Fluid bolus administered per Dr. Cerda. Rates pain 7-9/10. PRN Dilaudid for relief. Walked in halls x1. NPO. Midline dressing C/D/I. Gastrostomy tube patent and draining green fluid. Abdominal binder in place but patient will loosen it and even take it off. Patient was strongly encouraged to wear the binder and educated on risk and benefits of wearing it. Active ice in place. SBA.
[2022-02-22 07:00] VITALS: BP 119/75; PULSE 68; RESP 14; TEMP 36.6; O2SAT 97
[2022-02-22] MEDS: SODIUM CHLORIDE 0.9 % (FLUSH) 10 ML SYRINGE IVF ×2 (08:17→18:26)
--- NOTE | 2022-02-22 10:49 | PM.GSPN ---
Subjective Subjective Date Seen: 02/22/22 Interval history: Patient is doing well. She did have nausea and 1 episode of yellow vomiting yesterday. She ambulated to times. She is not passing gas. Her abdominal pain is controlled with pain medication. Exam Narrative: Exam Narrative: Abdomen: Soft, nondistended, tender to palpation in epigastrium and left lower quadrant, less tender in the right lower quadrant. The G-tube is in place with a bumper at 5 cm. (This was slightly adjusted postoperatively so that 4 cm bumper is not too tight on the abdominal wall). The surgical dressing was removed and linda are intact with no erythema around the midline laparotomy incision. Const: Vital Signs, click to edit/add: Vital Signs - 24 hr 02/21/22 11:00 02/21/22 15:00 02/21/22 19:00 Temperature 98.2 F 98.4 F 98.0 F Pulse Rate [Right] 93 91 91 Respiratory Rate 16 16 16 Blood Pressure [Ri ght Arm] 121/72 114/74 126/69 Pulse Oximetry 94 93 94 Oxygen Delivery Me thod Room Air Room Air Room Air 02/21/22 23:00 02/22/22 03:00 02/22/22 07:00 Temperature 98.3 F Pulse Rate [Right] 90 68 Respiratory Rate 16 16 14 Blood Pressure [Ri ght Arm] 97/61 Pulse Oximetry 96 Oxygen Delivery Me thod Room Air 02/22/22 07:00 Temperature 97.8 F Pulse Rate [Right] 68 Respiratory Rate 14 Blood Pressure [Ri ght Arm] 119/75 Pulse Oximetry 97 Oxygen Delivery Me thod Room Air Progress Note: A&P Assessment and plan (1) S/P exploratory laparotomy: Status: Acute Assessment and Plan: 51-year-old female s/p exploratory laparotomy and open gastrostomy tube for 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 Patient is improving. She is not passing gas yet. Will continue NPO with IV fluids. Her urine output slightly improved after bolus last night. Her vitals are stable. Will continue gastrostomy tube open to gravity. We will continue Lovenox for DVT prophylaxis. (2) S/P gastrostomy: Status: Acute
[2022-02-22] MEDS: ENOXAPARIN 40 MG/0.4 ML INJ SUBCUT (10:54)
[2022-02-22 11:00] VITALS: BP 115/66; PULSE 75; RESP 16; TEMP 36.8; O2SAT 96
[2022-02-22 15:00] VITALS: BP 119/65; PULSE 56; RESP 14; TEMP 36.8; O2SAT 96
[2022-02-22] MEDS: NICOTINE 14 mg PATCH 1 PATCH TRANSDERMA (18:09)
--- NOTE | 2022-02-22 18:40 | PC.NURSE ---
End of Shift: Patient pleasant and cooperative. Patient vitally stable, lungs clear, BS WNL, IV running LR at 100ml. Patient SBA, has walked the [place] x3 this shift, and has slept a lot. Patient has rated pain at most 6-7/10, Dilaudid 0.5 mg administered when requested. G-tub draining green fluid into pedraza bag, 400ml. Patient has urinated x3 with this investment underwriter. Abdominal incision C/D/I.
[2022-02-22 19:00] VITALS: BP 116/76; BP 119/75; PULSE 77; RESP 16; TEMP 36.5; O2SAT 94
[2022-02-22 23:00] VITALS: BP 122/75; PULSE 56; RESP 18; TEMP 36.8; O2SAT 96
[2022-02-23] MEDS: HYDROmorphone 0.5 mg/0.5 ml inj IVP ×7 (01:31→21:09)
[2022-02-23] MEDS: PIPERACILLIN/TAZOBACTAM 3.375 GM in 0.9 % SODIUM CHLORIDE Mini-bag 100 ML IVPB ×4 (02:54→20:47)
[2022-02-23 03:00] VITALS: BP 132/70; PULSE 66; RESP 18; TEMP 36.9; O2SAT 93
[2022-02-23] MEDS: ONDANSETRON 2 MG/ML inj IVP (03:05)
[2022-02-23] MEDS: LACTATED RINGERS 1000 ML 1,000 ML 100 ML IV ×2 (05:37→18:27)
[2022-02-23] MEDS: 0.9 % SODIUM CHLORIDE 250 ml IV (05:38)
--- NOTE | 2022-02-23 06:02 | PC.NURSE ---
Shift note: Pt dressing is clean and dry. Pt complained of feeling nauseated and Ondansetron was given.G-tube drained about 50ml of greenish gastric content. Pain level has been around 6 and 8 and managed effectively with icepack and Hydromorphone. Pt has been in bed throughout the shift.
[2022-02-23 06:57] LABS: Basophils Absolute Auto 0.02 K/uL (0.00-0.30); Basophils Percent Auto 0.2 % (0.0-3.0); Eosinophils Percent Auto 8.2 % (0.0-7.0); Hematocrit 30.3 % (33.0-51.0); Hemoglobin* 9.1 gm/dL (12.0-16.0); Immature Granulocytes Abs Auto 0.05 K/uL (0.00-0.30); Lymphocytes Percent Auto 13.9 % (20-44); Mean Corpuscular HGB Conc 30 gm/dL (32-36); Mean Corpuscular Hemoglobin 21 pg (26-34); Mean Corpuscular Volume 70 fL (80-100); Monocytes Percent Auto 5.1 % (0.0-11.0); Neutrophils Absolute Auto 6.21 K/uL (1.7-7.0); Platelet Count* 407 K/uL (140-440); RDW Coefficient of Variation % 20.3 % (11.5-15.5); Red Blood Count 4.34 m/uL (4.00-5.20); White Blood Count* 8.63 K/uL (4.50-11.00)
[2022-02-23 07:00] VITALS: BP 129/89; PULSE 53; RESP 16; TEMP 36.8; O2SAT 97
[2022-02-23 07:12] LABS: Slide Review Reflex No
[2022-02-23 07:13] LABS: Chloride* 101 mmol/L (96-114); Potassium* 3.5 mmol/L (3.6-5.1); Sodium* 137 mmol/L (135-149)
[2022-02-23 07:15] LABS: Creatinine* 0.7 mg/dL (0.5-1.5); Est. Creatinine Clearance* 77.77; Estimated Glomerular Filt Rate 104 ml/min
[2022-02-23 07:16] LABS: Blood Urea Nitrogen* 14 mg/dL (7-30); Carbon Dioxide* 25 mmol/L (20-32); Glucose* 61 mg/dL (60-115)
--- NOTE | 2022-02-23 08:28 | PM.GSPN ---
Subjective Subjective Date Seen: 02/23/22 Interval history: Patient's pain is controlled. She feels like the pain is slightly better but is still bothering her when she moves. She ambulated 3 times yesterday. She tried to stretch the periods between pain medications. She denies passing gas but states that ?a lot? came out from the G-tube. Exam Narrative: Exam Narrative: Abdomen: Soft, not distended, diffusely tender to palpation, unchanged from yesterday, midline laparotomy incision is healing well with intact linda and no surrounding erythema. Gastrostomy tube is in place and has green drainage in the drainage bag. Const: Vital Signs, click to edit/add: Vital Signs - 24 hr 02/22/22 11:00 02/22/22 15:00 02/22/22 15:00 Temperature 98.2 F 98.3 F Pulse Rate [Right] 75 56 L 56 L Respiratory Rate 16 14 14 Blood Pressure [Le ft Arm] 115/66 119/65 Blood Pressure [Ri ght Arm] Pulse Oximetry 96 96 Oxygen Delivery Me thod Room Air Room Air 02/22/22 19:00 02/22/22 23:00 02/22/22 23:00 Temperature 97.7 F 98.2 F Pulse Rate [Right] 77 56 L Respiratory Rate 16 18 18 Blood Pressure [Le ft Arm] 116/76 122/75 Blood Pressure [Ri ght Arm] 119/75 Pulse Oximetry 94 96 Oxygen Delivery Me thod Room Air Room Air 02/23/22 03:00 Temperature 98.5 F Pulse Rate [Right] 66 Respiratory Rate 18 Blood Pressure [Le ft Arm] 132/70 Blood Pressure [Ri ght Arm] Pulse Oximetry 93 Oxygen Delivery Me thod Room Air Progress Note: A&P Assessment and plan (1) S/P gastrostomy: Status: Acute (2) S/P exploratory laparotomy: Status: Acute Assessment and Plan: 51-year-old female s/p exploratory laparotomy, lysis of adhesions, an open gastrostomy tube placement POD 3. Waiting for return of bowel function. I discussed with the patient to continue ambulating as much as possible. Patient's potassium is below normal range and I will replace it today. Patient's hemoglobin went down to 9.1. Patient does not have a distended abdomen and is not tachycardic. This is most likely dilutional since patient had a lot of fluid since her admission.
[2022-02-23] MEDS: SODIUM CHLORIDE 0.9 % (FLUSH) 10 ML SYRINGE IVF ×3 (09:05→18:25)
[2022-02-23] MEDS: POTASSIUM CHLORIDE 10 MEQ/100 ML PIGGYBACK 100 MEQ IVPB (09:50)
[2022-02-23 11:00] VITALS: BP 133/74; PULSE 52; RESP 20; TEMP 37.2; O2SAT 97
[2022-02-23] MEDS: ENOXAPARIN 40 MG/0.4 ML INJ SUBCUT (11:26)
[2022-02-23 15:00] VITALS: BP 112/65; PULSE 52; RESP 16; TEMP 37.1; O2SAT 96
[2022-02-23] MEDS: NICOTINE 14 mg PATCH 1 PATCH TRANSDERMA ×2 (18:24→18:29)
[2022-02-23 19:00] VITALS: BP 132/74; PULSE 51; RESP 20; TEMP 36.7; O2SAT 97
--- NOTE | 2022-02-23 19:57 | PC.NURSE ---
End of Shift: Patient pleasant and cooperative. Patient vitally stable, lungs clear, BS WNL, IV running LR at 100. Patient has been up to walk the halls. Dilauded given upon request, but patient has had less Dilaudid compared to this shift yesterday. Patient urinating and pedraza with green drainage, 150cc. Incision C/D/I. Patient had many visitors today.
[2022-02-23] MEDS: ONDANSETRON 2 MG/ML inj 4 MG IVP (20:47)
[2022-02-23 23:00] VITALS: BP 136/74; PULSE 44; RESP 16; TEMP 36.7; O2SAT 100
[2022-02-24] VITALS (8 sets, daily range): BP systolic 117–135; BP diastolic 76–83; PULSE 57–72; RESP 16–18; TEMP 36.2–37; O2SAT 96–100
[2022-02-24] MEDS: PIPERACILLIN/TAZOBACTAM 3.375 GM in 0.9 % SODIUM CHLORIDE Mini-bag 100 ML IVPB ×4 (03:11→20:57)
[2022-02-24] MEDS: HYDROmorphone 0.5 mg/0.5 ml inj IVP ×2 (03:26→08:04)
--- NOTE | 2022-02-24 07:23 | PC.NURSE ---
END OF SHIFT NOTE: PT PLEASANT AND COOPERATIVE. VSS ON RA; AFEBRILE. DENIES CP AND SOB. PT NAUSEA RELIEVED WITH THE ADMINISTRATION OF ZOFRAN AND USE OF AROMATHERAPY PATCH. PT INDEPENDENT THROUGHOUT NIGHT USING BATHROOM; THIS MORNING PT REPORTED FEELING LIGHT-HEADED WHEN GETTING UP. BED ALARM ON AND PT TOLD TO USE CALL LIGHT WHEN NEEDING TO USE RESTROOM. MIDLINE INCISION CDI. DRESSING TO GASTROSTOMY DRAIN WITH SCANT AMOUNT OF DRAINAGE. GASTROSTOMY IS PATENT AND DRAINING GREEN OUTPUT.
[2022-02-24] MEDS: LACTATED RINGERS 1000 ML 1,000 ML 100 ML IV ×2 (08:04→20:56)
[2022-02-24] MEDS: SODIUM CHLORIDE 0.9 % (FLUSH) 10 ML SYRINGE IVF (09:52)
[2022-02-24] MEDS: ONDANSETRON 2 MG/ML inj IVP (09:52)
[2022-02-24 10:05] LABS: Chloride* 101 mmol/L (96-114); Potassium* 3.2 mmol/L (3.6-5.1); Sodium* 136 mmol/L (135-149)
[2022-02-24 10:08] LABS: Blood Urea Nitrogen* 6 mg/dL (7-30); Carbon Dioxide* 21 mmol/L (20-32); Creatinine* 0.5 mg/dL (0.5-1.5); Est. Creatinine Clearance* 108.88; Estimated Glomerular Filt Rate 113 ml/min
[2022-02-24 10:09] LABS: Calcium* 7.9 mg/dL (8.4-10.6); Glucose* 63 mg/dL (60-115)
[2022-02-24 11:14] LABS: Hematocrit 32.1 % (33.0-51.0); Hemoglobin* 9.7 gm/dL (12.0-16.0); Mean Corpuscular HGB Conc 30 gm/dL (32-36); Mean Corpuscular Hemoglobin 21 pg (26-34); Mean Corpuscular Volume 69 fL (80-100); Platelet Count* 490 K/uL (140-440); Red Blood Count 4.63 m/uL (4.00-5.20)
[2022-02-24 11:18] LABS: Slide Review Reflex No
[2022-02-24] MEDS: ENOXAPARIN 40 MG/0.4 ML INJ SUBCUT (11:28)
--- NOTE | 2022-02-24 12:01 | PM.GSPN ---
Subjective Subjective Date Seen: 02/24/22 Interval history: Patient is doing well. She ambulated several times yesterday. She denies vomiting. She started to pass gas and had a small bowel movement. She continues to have pain in the abdomen but that is significantly improved. Patient is also tells me that she is chronically anemic. She used to receive IV iron infusions. Exam Narrative: Exam Narrative: Abdomen: Abdomen is soft, not distended, diffusely tender to palpation but slightly better than yesterday. The most tenderness is located in left lower quadrant. No peritoneal signs. The G-tube is in place with a bumper at 5. Minimal amount of green fluid is noted in the drainage bag. The midline laparotomy incision is with intact linda. Const: Vital Signs, click to edit/add: Vital Signs - 24 hr 02/23/22 15:00 02/23/22 15:00 02/23/22 19:00 Temperature 98.8 F 98.1 F Pulse Rate [Left R adial] Pulse Rate [Right] 52 L 52 L 51 L Respiratory Rate 16 16 20 Blood Pressure [Le ft Arm] Blood Pressure [Ri ght Arm] 112/65 132/74 Pulse Oximetry 96 97 Oxygen Delivery Me thod Room Air Room Air 02/23/22 23:00 02/23/22 23:00 02/24/22 03:00 Temperature 98.1 F 98.4 F Pulse Rate [Left R adial] Pulse Rate [Right] 44 L 44 L 57 L Respiratory Rate 16 16 16 Blood Pressure [Le ft Arm] Blood Pressure [Ri ght Arm] 136/74 129/78 Pulse Oximetry 100 96 Oxygen Delivery Me thod Room Air Room Air 02/24/22 08:07 Temperature 98.1 F Pulse Rate [Left R adial] 68 Pulse Rate [Right] Respiratory Rate 16 Blood Pressure [Le ft Arm] 135/76 Blood Pressure [Ri ght Arm] Pulse Oximetry 100 Oxygen Delivery Me thod Room Air Progress Note: A&P Assessment and plan (1) S/P exploratory laparotomy: Status: Acute Assessment and Plan: 51-year-old female s/p exploratory laparotomy, lysis of adhesions, an open gastrostomy tube placement POD 4. Patient is doing well. She had return of bowel function. Will advance her diet to clears. We will also clamp her gastrostomy tube. Patient's hemoglobin is stable in the 9s. Patient's vital signs are stable and her abdomen is not distended. I think patient came in hemoconcentrated and this is dilutional anemia and not a blood loss anemia. Patient states that she has chronic anemia. She will need to see her primary care doctor as outpatient for follow-up of this. Patient is also hypokalemic and will replace that. (2) S/P gastrostomy: Status: Acute
[2022-02-24] MEDS: POTASSIUM BICARB 25 MEQ EFFERVESCENT TAB PO ×3 (14:55→21:00)
[2022-02-24] MEDS: 0.9 % SODIUM CHLORIDE 250 ml IV (15:57)
[2022-02-24] MEDS: HYDROCODONE-ACETAMIN 5-325 MG 1 TAB PO ×2 (16:14→22:15)
--- NOTE | 2022-02-24 17:09 | PC.NURSE ---
Pt reporting increased contorting and constant abdominal pain. Moderate loose/formed BM and pt reports flatus. Pt requests G-tube be opened to drainage again. Dr. Alas called and updated. G-tube reconnected to gravity drainage with small amounts of serous/frothy drainage. Ice pack given and 2 tabs [place] PRN. VS WNL.
[2022-02-24] MEDS: ONDANSETRON 2 MG/ML inj 4 MG IVP (18:14)
[2022-02-25] VITALS (7 sets, daily range): BP systolic 117–143; BP diastolic 70–90; PULSE 52–65; RESP 14–18; TEMP 36.6–36.9; O2SAT 98–100
[2022-02-25] MEDS: ONDANSETRON 2 MG/ML inj 4 MG IVP ×3 (00:01→14:31)
--- NOTE | 2022-02-25 02:37 | PC.NURSE ---
Shift Note [id number]: Pt friendly and cooperative. States she is much more comfortable with drain open to gravity again. Total of 300 cc of montgomery frothy/serous put out. G-tube weeping around site, area wiped with 4x4's and fresh drain sponge placed. Medial incision well approximated, linda intact and without drainage or odor. BS present, pt verbalizes flatus, and she had 2 moderate loose/formed stools. Walked x1 this evening. C/o mild nausea but is tolerating clears and throughout the evening had x2 broths, a grape juice, and a jell-o. Pain is being well controlled with oral PRN's.
[2022-02-25] MEDS: PIPERACILLIN/TAZOBACTAM 3.375 GM in 0.9 % SODIUM CHLORIDE Mini-bag 100 ML IVPB ×4 (03:36→20:42)
[2022-02-25] MEDS: HYDROCODONE-ACETAMIN 5-325 MG 1 TAB PO ×3 (06:37→20:47)
[2022-02-25 07:14] LABS: Potassium* 3.1 mmol/L (3.6-5.1)
--- NOTE | 2022-02-25 09:01 | PM.GSPN ---
Subjective Subjective Date Seen: 02/25/22 Interval history: Patient had episodes of crampy abdominal pain yesterday. Her G-tube was unclamped and patient felt relief. Patient also passed a little gas and had 2 bowel movements. She had some nausea but no vomiting. She tolerated clears yesterday. She ambulated. Exam Narrative: Exam Narrative: Abdomen: Soft, not distended, minimally tender to palpation in the left lower quadrant, this is improved from yesterday, not tender to palpation in the right lower quadrant. Midline laparotomy incision is healing well with no erythema, the linda are intact. The G-tube bumper is at 5. I rotated the G-tube and advanced it into the stomach and then placed the bumper back at 5. Const: Vital Signs, click to edit/add: Vital Signs - 24 hr 02/24/22 11:28 02/24/22 16:14 02/24/22 15:00 Temperature 98.6 F 97.1 F L Pulse Rate [Left R adial] 72 59 L Pulse Rate [Right] 59 L Respiratory Rate 18 18 Blood Pressure [Le ft Arm] 117/81 Blood Pressure [Ri ght Arm] Pulse Oximetry 98 Oxygen Delivery Me thod Room Air 02/24/22 16:00 02/24/22 20:00 02/24/22 23:00 Temperature 98.1 F 98.3 F Pulse Rate [Left R adial] 59 L 62 65 Pulse Rate [Right] Respiratory Rate 18 18 18 Blood Pressure [Le ft Arm] 129/83 128/79 Blood Pressure [Ri ght Arm] Pulse Oximetry 99 98 Oxygen Delivery Me thod Room Air Room Air 02/25/22 00:00 02/25/22 03:49 02/25/22 07:00 Temperature 97.8 F 98.2 F Pulse Rate [Left R adial] 65 65 Pulse Rate [Right] 57 L Respiratory Rate 18 16 14 Blood Pressure [Le ft Arm] 117/73 124/70 Blood Pressure [Ri ght Arm] Pulse Oximetry 99 99 Oxygen Delivery Me thod Room Air Room Air 02/25/22 08:00 Temperature 97.8 F Pulse Rate [Left R adial] Pulse Rate [Right] 57 L Respiratory Rate 14 Blood Pressure [Le ft Arm] Blood Pressure [Ri ght Arm] 125/81 Pulse Oximetry 100 Oxygen Delivery Me thod Room Air Progress Note: A&P Assessment and plan (1) S/P gastrostomy: Status: Acute Assessment and Plan: 51-year-old female s/p exploratory laparotomy, lysis of adhesions, and open gastrostomy tube placement for small-bowel obstruction POD 5. Patient had some crampy pain yesterday and passed a lot of gas and had 2 bowel movements. Most likely her pain was related to increased bowel function. However her gastrostomy tube was opened. Patient tolerated clears. We will advance her diet as tolerated today. We will clamp her G-tube again and see how she tolerates that. A possible home tomorrow. Patient will need to see her primary care doctor for follow-up on her anemia. Her G tube will stay in place. She will need to learn gastrostomy tube cares. (2) S/P exploratory laparotomy: Status: Acute
[2022-02-25] MEDS: NYSTATIN CREAM 30 GM 1 APPLIC TOPICAL ×4 (09:05→20:51)
[2022-02-25] MEDS: ENOXAPARIN 40 MG/0.4 ML INJ SUBCUT (11:08)
[2022-02-25] MEDS: POTASSIUM CHLORIDE 10 MEQ/100 ML PIGGYBACK 100 MEQ IVPB (12:12)
[2022-02-25] MEDS: POTASSIUM BICARB 25 MEQ EFFERVESCENT TAB PO ×4 (12:34→18:48)
[2022-02-25] MEDS: SODIUM CHLORIDE 0.9 % (FLUSH) 10 ML SYRINGE IVF ×2 (14:33→18:16)
[2022-02-25] MEDS: NICOTINE 14 mg PATCH 1 PATCH TRANSDERMA (18:08)
[2022-02-25] MEDS: ONDANSETRON 2 MG/ML inj IVP (18:16)
--- NOTE | 2022-02-25 18:34 | PC.NURSE ---
End of Shift: Patient pleasant and cooperative. Patient vitally stable, lungs clear, BS WNL, New IV inserted 20g in left FA running LR @100. Patient independent in room. Patient given norco x1 this shift. New nicotine patch applied to left shoulder. Patient requested Zofran once. Then at dinner time patient took a sip of milk and spat it back up, not a true emesis, 4mg of zophran given again. Patient's g tube is clamped. Before clamping of gtube, tube was flushed, then later emptied 75 ml. Patient has only had a few bites with each tray she has ordered. Patient had 1 small formed BM and urinating. Patient refused IV potassium as it burned, now drinking potassium.
[2022-02-25] MEDS: LACTATED RINGERS 1000 ML 1,000 ML 100 ML IV (19:28)
[2022-02-25] MEDS: LORazepam 2 MG/ML inj 1 MG IVP (20:24)
--- NOTE | 2022-02-25 20:47 | PC.NURSE ---
Per primary nurse, silicone bolster has migrated approx 1 inch from patient's body. This occurred after primary nurse flushed 30 cc into balloon part and then removed the 30cc promptly. Notified surgeon, Dr. Alas, of status. Instructed per surgeon to deflate balloon, gently advance tube, and reinflate tube. Patient reports high anxiety and pain. Calming reassurance provided, order obtained for Ativan 1mg IV. Medication given, tube was gently advanced with little resistance. Patient tolerated this well. Balloon reinflated with 7cc sterile water per surgeon instruction. Bolster is now flush with patient's abdomen. Patient states, oh that feels so much better now. Updated surgeon.
--- NOTE | 2022-02-25 22:27 | PC.NURSE ---
Shift [id number]- Upon initial assessment, it was observed that g-tube had migrated out and circular bolster was no longer flush with skin. Patient reported pain when trying to handle or touch to assess. Per previous RN, flush was administered to balloon port this AM, withdrawn, and subsequently the g-tube migrated out. budder and surgeon updated. budder repositions g-tube per surgeon instructions, patient reports better comfort. She rates pain 4/10 and receives PRN pain medication when available. She is up independently. She also reports continuing to pass gas.
[2022-02-26 00:40] VITALS: BP 121/70; PULSE 68; RESP 16; TEMP 36.5; O2SAT 98
[2022-02-26] MEDS: PIPERACILLIN/TAZOBACTAM 3.375 GM in 0.9 % SODIUM CHLORIDE Mini-bag 100 ML IVPB (02:51)
[2022-02-26 04:20] VITALS: BP 128/75; PULSE 67; RESP 16; TEMP 36.7; O2SAT 99
--- NOTE | 2022-02-26 06:58 | PC.NURSE ---
END OF SHIFT NOTE: PT PLEASANT AND COOPERATIVE WITH CARES. AMBULATES INDEPENDENTLY. DRESSING TO MIDLINE INCISION AND GT CDI. PT ABDOMEN IS SOFT AND TENDER WITH ACTIVE BS. PT PASSING FLATUS. VSS ON RA; AFEBRILE. LARGE LOOSE BM THIS AM.
[2022-02-26 07:00] VITALS: PULSE 67; RESP 16
[2022-02-26 08:00] VITALS: BP 127/97; PULSE 67; RESP 16; TEMP 36.7; O2SAT 97
[2022-02-26] MEDS: HYDROCODONE-ACETAMIN 5-325 MG 1 TAB PO (08:07)
[2022-02-26] MEDS: ONDANSETRON 2 MG/ML inj 4 MG IVP (08:07)
[2022-02-26] MEDS: POTASSIUM BICARB 25 MEQ EFFERVESCENT TAB PO (09:17)
[2022-02-26 10:09] LABS: Lab Add On Test New Spec Needed
[2022-02-26 10:35] LABS: Potassium* 3.8 mmol/L (3.6-5.1)
--- NOTE | 2022-02-26 11:48 | PM.DS1 ---
DS: Providers Provider Date Seen: 02/26/22 Date of admission: 02/20/22 22:28 Primary care physician: Not a Local Provider Admitting Clinician: Alanna Edmondson MD Attending Physician on discharge: Alanna Edmondson MD DS: Summary Hospital Course Hospital Course: Patient presented to the ED with worsening abdominal pain. Work up was obtained with evidence of SBO in the setting of a gastric bypass. She was taken to the OR for exploratory laparotomy, CLEM and gastrostomy tube placement. Post operatively she did have slow return of bowel function. Evidence of hypokalemia during her stay, which improved with oral replacement. At the time of discharge her potassium normalized to , she had return of bowel function, was tolerating a regular diet and pain was well controlled. Plans at the rime of discharge for lab work on tuesday and follow up with her primary care provider. Micheal will be removed in clinic with follow up post op with Dr. Edmondson. Time Spent with Patient Time attestation: Total time spent providing and/or coordinating discharge services: Exam Narrative: Exam Narrative: Gen: Alert and oriented, no acute distress Abdomen: soft, non distended, appropriately tender over incision site with no guarding or rebound. G tube remains in place, bumper is at 5 at the skin. Midline incision with micheal in place c/d/i with no concern for infection. Const: Vital Signs, click to edit/add: Vital Signs - 24 hr 02/25/22 15:00 02/25/22 15:00 02/25/22 19:25 Temperature 98.5 F 98.5 F Pulse Rate [Left R adial] Pulse Rate [Right] 61 61 62 Respiratory Rate 14 14 16 Blood Pressure [Le ft Arm] 134/88 Blood Pressure [Ri ght Arm] 136/77 Pulse Oximetry 98 98 Oxygen Delivery Me thod Room Air Room Air 02/26/22 00:40 02/26/22 00:40 02/26/22 04:20 Temperature 97.7 F 98.0 F Pulse Rate [Left R adial] 68 68 Pulse Rate [Right] 67 Respiratory Rate 16 16 16 Blood Pressure [Le ft Arm] Blood Pressure [Ri ght Arm] 121/70 128/75 Pulse Oximetry 98 99 Oxygen Delivery Me thod Room Air Room Air 02/26/22 07:00 02/26/22 08:00 Temperature 98.0 F Pulse Rate [Left R adial] Pulse Rate [Right] 67 67 Respiratory Rate 16 16 Blood Pressure [Le ft Arm] Blood Pressure [Ri ght Arm] 127/97 H Pulse Oximetry 97 Oxygen Delivery Me thod Room Air DS: Data Data Completed and Pending Labs on day of discharge: Labs from last 24 hours 02/26/22 10:05 Potassium 3.8 Discharge Plan Discharge Disposition: Home, Self-Care Date of Admission: 02/20/22 22:28 Attending Provider on Discharge: Alanna Edmondson Primary Care Provider: Provider,Not a Local Condition: Improved Anticipated Discharge Date/Time: 02/26/22 11:54 Discharge Medications: New hydrocodone-acetaminophen 5-325 mg tablet 1 - 2 tab PO Q6H PRN (Reason: pain) Qty: 25 0RF potassium chloride 20 mEq tablet extended release 20 meq PO BID Qty: 14 0RF Rx Instructions: take with food, repeat lab on 03/01 No Action No Known Home Medications No Known Home Medications Discharge Orders: Discharge Order (Routine); Ordered 02/26/22 Ordered By: Margoth Alas Patient Education: How to Use and Care for Your PEG Tube (GEN) Additional Instructions: Patient should be educated about gastrostomy tube. Gastrostomy tube can be clamped at all times and the bumper should be checked at least daily. G tube should be flushed with 30 mls of tap water daily. Patient is to make an appointment with her primary care doctor in the next couple weeks to follow-up on her chronic anemia. Activity Level: No strenuous activity Activity Detail: No lifting >20 lbs for 6 weeks. Discharge Diet: Regular Follow Up Appointments: Alanna Edmondson MD [Staff Physician] - Provider,Not a Local [Primary Care Provider] - Forms: [employer] Info Instructions Discharge Comments: PATIENT NEEDS LAB APPT, BMP, FOR 03/01 Patient needs to have a nursing appointment on postop day 10 for staple removal. Follow up in [facility] in 2 weeks.
--- NOTE | 2022-02-26 14:04 | PC.NURSE ---
Discharge: Pt. discharged at 1300. IV removed intact. VSS. mild nausea present, PRN zofran administered w/relief and rates pain 08/02. PRN pain med administered see eMAR. Pt. belongings list signed and discharge instructions given and signed. SHIFT NOTE: PT PLEASANT AND COOPERATIVE WITH CARES. AMBULATES INDEPENDENTLY. DRESSING TO MIDLINE INCISION AND GT CDI. PT ABDOMEN IS SOFT AND TENDER WITH ACTIVE BS. PT PASSING FLATUS. VSS ON RA; AFEBRILE. LARGE LOOSE BM THIS AM.
== END 2022-02-26 13:00 | disposition home or self-care (01) | DRG 327 ==
LOC: ED 19:35 → SS 19:49 → MEDSURG 20:56 → SS 23:19 → MEDSURG 23:19
PROVIDERS: Admitting Provider Surgery; Emergency Provider Emergency Medicine Emergency Medical Services; Visit Provider Surgery
PROC: 0D9600Z Drainage of Stomach with Drainage Device, Open Approach (ICD-10-PCS; CPT 49000; principal; 2022-02-20 19:45)
DX: K95.89 Other complications of other bariatric procedure (principal); K56.50 Intestinal adhesions [bands], unspecified as to partial versus complete obstruction; Z98.84 Bariatric surgery status; E87.6 Hypokalemia; E86.0 Dehydration; D53.9 Nutritional anemia, unspecified; F41.9 Anxiety disorder, unspecified; F32.A Depression, unspecified; F17.210 Nicotine dependence, cigarettes, uncomplicated
CPT/HCPCS: 00790; 36415; 64488; 74177; 76942; 80048; 80076; 82040; 83690; 84132; 84134; 84443; 85025; 85027; 87635; 99140; 99285; A9270; B4087; C9290; J0131; J0330; J1100; J1170; J1650; J1885; J2060; J2250; J2405; J2543; J2704; J2710; J3010; J3475; J3480; J3490; J7030; J7050; J7120; Q9967; S4990

== ENCOUNTER 2025-03-06 19:51 | Emergency (ER) | payer MEDICAID, SELFPAY ==
--- OUTSIDE RECORDS SUMMARY | 2006-12-05 03:48 | XMS_ITS | Continuity of Care Document ---
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 Phone Unavailable Unavailable Unavailable Allergies, Adverse Reactions, Alerts Substance Reaction Status Criticality FERROUS SULFATE, DRIED heart stopped Active No I nformation IRON,CARBONYL heart stopped Active No Informatio n DOCUSATE SODIUM heart stopped Active No Informat ion ferrous sulfate heart stopped Active No Informat ion IRON POLYSACCHARIDE COMPLEX heart stopped Active No Information ferrous gluconate heart stopped Active No Inform ation ferrous fumarate heart stopped Active No Informa tion iron heart stopped Active No Information calcium heart stopped Active No Information Medications Medication Instructions Dosage Effective Dates (start - stop) Status Comments Singulair 10 mg Tab Take 1 tablet by mouth daily - Active Levothyroxine Sodium 0.175 mgTABLET Take one tablet by mouth daily - Active Wellbutrin XL 300 mg 24 hr Tab Take 1 tablet by mouth daily - Active BuSpar 15 mg Tab Take one tablet by mouth daily - Active Lexapro 20 mg Tab Take one tablet by mouth daily - Active Remeron 30 mg Tab Take one tablet by mouth daily - Active Procedures Procedure Date Offic Cons New/estab Mod-hi 60 07 Advance Directives Directive Yes / No Effective Date File Name No Information Encounters Encounter Description Practice Location Reason(s) For Visit Diagnoses Date Provider Providers Copied on Encounter [facility], [address] [address], [place], [place], [id number], [place] tel:[phone] [facility] No Information No Information Offic Cons New/estab Mod-hi 60 [place] [facility], [address] [address], [place], [place], [id number], [place] tel:[phone] [facility] No Information Referring Provider: Katelyn Fuchs, [address], [place], [address]. tel:[phone] Family History Family Member Type Diagnosis Age At Onset No Information Payers Payer name Insurance type Covered libertarian ID Authoriza tikaryna(s) [facility] [id number] Social History Type Description Quantity Date Captured Comments Sex Female Smoking Status No Information Chief Complaint And Reason For Visit No Information Reason For Referral Reason For Referral No Information History Of Present Illness Encounter Date Complaint History Of Prese nt Illness No Information Functional Status Date Functional Assessmen t No Information Instructions Date Instruction Additional Infor mation No Information Assessments Type Assessment Date No Information Patient Care Teams Name Effective Dates (start - stop) Status Members No Information
--- OUTSIDE RECORDS SUMMARY | 2006-12-05 03:48 | XMS_ITS | Continuity of Care Document ---
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 tel:[phone] Family History Family Member Type Diagnosis Age At Onset No Information Payers Payer name Insurance type Covered libertarian ID Authoriza tikaryna(s) [facility] [id number] Social History Type Description Quantity Date Captured [...]
--- OUTSIDE RECORDS SUMMARY | 2025-03-06 19:54 | XMS_ITS | Clinical Summary ---
Author Organization [email or web address] [facility] Address [address] [place] [id number] Care Team Providers Care Associate Director Data & Analytics Name Role Phone Unavailable Primary Care Provider Unavailabl e Allergies Active Allergy Reactions Criticality Noted Date Comments Sodium Ferric Gluconat-Sucrose Hives,Shortness Of Breath High 10/28/2004 Medications COMBIVENT 18 MCG-103 MCG/ACTUATION AEROSOL INHALER inhale 2 puffs by inhalation route prn 1 0 9 Active EPINEPHrine 0.3 mg/0.3 ml (EPIPEN) 0.3 mg/0.3 mL injection Inject 0.3 mg intramuscular one time if needed for Allergic Reaction for 1 dose. 2 Each 5 1 Active cholecalciferol (VITAMIN D) 1,000 unit capsule Take by mouth once daily. 0 Active hydrOXYzine HCL (ATARAX) 25 mg tabletIndicatio ns:Anxiety Take 1/2 to 1 tablet by mouth once daily as needed for anxiety/ sleep 30 Tablet 5 Active durable medical equipment (DME)Indication s:Closed fracture of distal end of right fibula, unspecified fracture morphology, initial encounter Referral to [facility] for knee scooter as gait aid 1 Each 5 Active venlafaxine 150 mg Extended-Releas e capsuleIndicati ons:Moderate episode of recurrent major depressive disorder (HC) Take 1 Capsule (150 mg) by mouth once daily with a meal. Take along with 75 mg capsule for total daily dose of 225 mg. 90 Capsule 5 Active venlafaxine 75 mg cp24 Extended-Releas e capsuleIndicati ons:Moderate episode of recurrent major depressive disorder (HC) Take 1 Capsule (75 mg) by mouth once daily with a meal. TAKE ALONG WITH 150MG CAPSULE FOR TOTAL DAILY DOSE OF 225MG 90 Capsule 5 Active Active Problems Problem Noted Date Diagnosed Date Cervical cancer screening 03/29/2024 Overview (03/29/2024): 02/2024 NIL/HPV negative Plan: HPV-based testing due 02/2029 Controlled substance agreement signed 10/06/2016 Overview (10/06/2016): Signed : Dr. 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/09/2007): 2007 requiring hosp Generalized anxiety disorder 01/09/2007 Unspecified hypothyroidism Unspecified asthma(493.90) Allergic rhinitis, cause unspecified Other acne Migraine, unspecified, witho ut mention of intractable migraine without mention of status migrainosus Overview (2006): cluster Other and unspecified hyperlipidemia Anemia, unspecified Resolved Problems Problem Noted Date Diagnosed Date Resolved Date Major depression 12/11/2012 10/12/2013 Panic disorder without agoraphobia 08/09/2007 09/22/2011 Dysthymic disorder 01/09/2007 2 Depressive disorder, not elsewhere classified 12/11/2012 Immunizations Immunization Administration Dates Next Due AMB Influenza, IIV3 (Age >=3 years)(Flu Clinic Only) 02/14/2008 Influenza, IIV3 (Age >=3 years) 01/26/20 11,02/17/2010,01/14/2009,2006 Tdap 05/21/2008 Tuberculin (PPD) 2016 Zoster (Shingrix-RZV, recombinant) 07/02/2021, Family History Medical History Relation Name Comments Stroke Brother 1 Psychiatric illness Brother 2 severe a stranged from family Alcohol/Drug Father recovering Hyperlipidemia Father Hypertension Father Other Father degenerative jewel ne disease related to ETOH Diabetes Maternal Aunt Cancer Mother Snow syndrome Diabetes Mother Unknown Mother Osteoporosis Paternal Grandfather Unknown Sister Asthma Son 3 Cj Other Son 3 Cj autism/cholesto anjelica Psychiatric illness Son 3 Cj ADHD Seizures Son 3 Cj Asthma Son 4 Christopher Psychiatric illness Son 4 Christopher ADD not formally dz yet Relation Name Status Comments Brother 1 Alive Brother 2 Father Alive Maternal Aunt Mother Alive Paternal Grandfather Sister Son 1 Alive Son 2 Alive Son 3 Cj Son 4 Christopher Social History Tobacco Use Types Packs/Day Years Used Date Smoking Tobacco: Some Days Cigarettes 0.6 9.9 Started: 06/29/1991; Last attempted to quit: 06/28/1996 Smokeless Tobacco: Never Tobacco Cessation:Ready to Q uit: No; Counseling Given: No Comments:on occasion Alcohol Use Standard Drinks/Week Comments No 0 (1 standard drink = 0.6 oz pur e alcohol) PHQ-2 Answer Date Recorded PHQ-2 TOTAL SCORE 4 05/10/2024 Social Connections Answer Date Recorded Frequency of Communication with Friends and Fami ly Not on file 05/08/2021 Financial Resource Strain Answer Date R ecorded Difficulty of Paying Living Expenses Not on file 05/08/2021 Difficulty of Paying Living Expenses Not on file 05/08/2021 Comments No Sex and Gender Information Value Date Recorded Sex Assigned at Not on file Legal Sex Female 5:17 AM DRUM ATTENDANT Gender Identity Not on file Sexual Orientation Not on file Obstetrics History Para Term AB IAB SAB Ectopic Multiple Livin g Live Births 3 2 0 1 1 0 1 0 0 2 2 Date Outcome GA Total Labor Labor/2nd/3rd Weight Sex Type Anes PTL Nory A1 A5 Name Clin Para 2000 34w 0d 2.78 kg (6 lb 2 oz) M Vag Livin g Cj Comments:PTL, placent a needed help fpr del. 2003 SAB 10w 0d SPONTA NEOUS Livin g Last Filed Vital Signs Vital Sign Reading Time Taken Comments Blood Pressure 126/82 07/20/2024 10:17 AM CDT Pulse 85 07/20/2024 10:17 AM CDT Temperature 36.7 C (98 F) 08/08/2017 1:32 PM CDT Respiratory Rate 18 08/08/2017 1:32 PM CDT Oxygen Saturation 100% 07/20/2024 10:17 AM CDT Inhaled Oxygen Concentration - - Weight 62.1 kg (137 lb) 05/10/2024 8:43 AM DRUM ATTENDANT Height 161 cm (5' 3.39) 05/10/2024 8:43 AM DRUM ATTENDANT Body Mass Index 23.97 05/10/2024 8:43 AM DRUM ATTENDANT Plan of Treatment Health Maintenance Due Date Last Done Comments HIV for age 15-65 1984 Hepatitis C screening for ag e 18-79 10/21/1987 Hepatitis B series for 19+ ( 1 of 3 - 19+ 3-dose series) 1988 Pneumococcal series for age 50+ (1 of 2 - PCV) 1988 Mammogram for age 45-75 2014 Colonoscopy through age 75 10/21/2016 10/21/2006 Tetanus booster 05/21/2018 05/21/2008 Influenza Vaccine (#1) 2024 1, 02/17/2010, 01/14/2009, Additional history exists BMI (ht and wt on same day) for age 18+ 05/10/2025 05/10/2024, 03/20/2024, 08/08/2017, Additional history exists Depression screening for age 12+ 05/10/2025 05/10/2024, 03/20/2024, 03/12/2024, Additional history exists Lipids for age 45-75 03/20/2029 03/20/2024, 08/08/2017, 08/27/2013, Additional history exists Pap test for age 21-65 03/20/2029 , 03/20/2024, 08/02/2013, Additional history exists RSV vaccine for adults or (1 - 1-dose 75+ series) 2044 Zoster (shingles) series for age 50+ Completed 07/02/2021, 02/06/2021 Procedures Procedure Name Priority Date/Time Associated Diagnosis Comments RESIDENTIAL ASSISTANT THIN PREP PAP SCREEN IMAGED Routine 03/20/2024 12:05 PM DRUM ATTENDANT Cervical cancer screening LIPID PANEL W REFLEX MEASURED LDL Routine 03/20/2024 11:29 AM DRUM ATTENDANT Screening cholesterol level from Last 3 Months or Most Recently Relevant to Health Maintenance Results * RESIDENTIAL ASSISTANT THIN PREP PAP SCREEN IMAGED (03/20/2024 12:05 PM DRUM ATTENDANT) Case Report Gynecologic Cytology Report Case: [id number] Authorizing Provider: Sherley Winchester Collected: 03/20/2024 1205 MD Jane Ordering Location: [facility] Received: 03/20/2024 1205 Clinic First Screen: Sharmin Vega Specimen: RESIDENTIAL ASSISTANT ThinPrep Vial Screening, Cervical 03/27/2024 4:21 PM DRUM ATTENDANT [facility] INTERPRETATION/ RESULT NEGATIVE FOR INTRAEPITHELIAL LESION OR MALIGNANCY (NIL) (none) 03/27/2024 4:21 PM DRUM ATTENDANT [facility] [employer] at 1621 DRUM ATTENDANT ORGANISM(S) Shift in elda suggestive of bacterial vaginosis 03/27/2024 4:21 PM DRUM ATTENDANT [facility] SPECIMEN ADEQUACY Satisfactory for evaluation Endocervical component present Scant cellularity Obscuring Inflammation 03/27/2024 4:21 PM DRUM ATTENDANT [facility] [employer] HPV REQUEST HPV and PAP 03/27/2024 4:21 PM DRUM ATTENDANT [facility] [facility] Date of LMP n/a 03/27/2024 4:21 PM DRUM ATTENDANT [facility] [employer] Last Pap Date 08/02/2013 03/27/2024 4:21 PM DRUM ATTENDANT [facility] Last Pap Result NIL 4:21 PM DRUM ATTENDANT [facility] Abnormal Pap or [place] Bx in last 5 years No 03/27/2024 4:21 PM DRUM ATTENDANT [facility] [employer] Menstrual Status Postmenopausal 03/27/2024 4:21 PM DRUM ATTENDANT [facility] [place] Bx Done Today No 03/27/2024 4:21 PM DRUM ATTENDANT [facility] [facility] Additional Information None given 03/27/2024 4:21 PM DRUM ATTENDANT [facility] Comment: Cytology is screened at [facility] - [address], [place] [address] and [facility] - [address], [place] [address] and [facility] - [address] [place] [address] Interpreted at [facility] - [address], [place] [address] Automated Review Successful 03/27/2024 4:21 PM DRUM ATTENDANT [facility] Comment:Specimen processed s uccessfully by automated physical laboratory assistant device, [employer] ANCILLARY TESTING RESIDENTIAL ASSISTANT HPV Ordered, Please see separate report 03/27/2024 4:21 PM DRUM ATTENDANT [facility] Note The pap test is a screening technique, not a diagnostic procedure. It is used primarily to screen for squamous cancers and precursor lesions. Published studies have shown that it is subject to both false negative and false positive results. The pap test should not be used as the sole means to diagnose or exclude pre-malignant and malignant lesions. 03/27/2024 4:21 PM DRUM ATTENDANT [facility] Other (Cervical) Non-Blood / Unknown 03/20/2024 12:05 PM DRUM ATTENDANT 03/20/2024 12:05 PM DRUM ATTENDANT Sherley Winchester MD PATHOLOGY/CYTOLOGY Final Result [facility] [address] [place] [address], * (ABNORMAL) LIPID PANEL W REFLEX MEASURED LDL (03/20/2024 11:29 AM DRUM ATTENDANT) CHOLESTEROL, TOTAL 222(H) <200 mg/dL [facility] HDL CHOLESTEROL 77 > OR = 50 mg/dL [facility] TRIGLYCERIDES 116 <150 mg/dL [facility] LDL-CHOLESTEROL 123(H) mg/dL (calc) [facility] Comment: Reference range: <100 Desirable range <100 mg/dL for primary prevention; <70 mg/dL for patients with CHD or diabetic patients with > or = 2 CHD risk factors. LDL-C is now calculated using the Colin calculation, which is a validated novel method providing better accuracy than the Friedewald equation in the estimation of LDL-C. Kyle GOMEZ et al. AAMIR. 2013;310(19): 3953-2311 (http://education.Chefs Feed/faq/IPX313) CHOL/HDLC RATIO 2.9 <5.0 (calc) [facility] NON HDL CHOLESTEROL 145(H) <130 mg/dL (calc) [facility] Comment: For patients with diabetes plus 1 major ASCVD risk factor, treating to a non-HDL-C goal of <100 mg/dL (LDL-C of <70 mg/dL) is considered a therapeutic option. Blood BLOOD SPECIMEN / Unknown 03/20/2024 11:29 AM DRUM ATTENDANT 03/20/2024 11:30 AM DRUM ATTENDANT Sherley Winchester MD CHEMISTRY Fi nal Result Progression [facility] [address] [place] [address], [email or web address] [address] [place] [address] from Last 3 Months or Most Recently Relevant to Health Maintenance Insurance [facility] Advance Directives * Full Code (Latest Code Status on File) Date Activated Date Inactivated Comments 07/18/2009 6:37 AM 07/18/2009 2:51 PM * Full Code Date Activated Date Inactivated Comments 01/01/2005 9:36 AM 01/01/2005 11:57 AM
[2025-03-06 20:18] VITALS: BP 119/77; PULSE 87; RESP 20; TEMP 37.2; O2SAT 99
--- NOTE | 2025-03-06 20:55 | ED.GENADULT ---
HPI - General Adult General Time Seen by Provider: 20:55 Date Seen: 03/06/25 Chief complaint: Psychiatric Problem/Disorder Stated complaint: shaking, mental health Time Seen by Provider: 03/06/25 20:55 Source: patient, RN notes reviewed and old records reviewed Mode of arrival: ambulatory Limitations: no limitations History of Present Illness HPI narrative: This 54-year-old female is coming into the ER accompanied by her boss from work. Patient states she is having anxiety, she initially states that I can talk freely in front of her boss but when ask about medications, she does ask her boss to leave. She notes that her life is very stressful, she is working 2 jobs. She used to be on psychiatric medications but cannot afford them. She denies any suicidality or homicidality. She states that she is tired, she thinks she is dehydrated, her urine looks dark, she has not been Sleeping as well, not getting enough sleep. She does endorse some insomnia. She is status post gastric bypass. She has not been sick with anything, denies any illness. She states she just wants to sleep. She did have a migraine earlier today, threw up at work and then states she had a panic attack. The vomiting largely resolved her migraine headache. She was noted to be shaking at work. Her boss notes that she has had episodes the last 4 days. She wonders if she might be on something. Patient denies any illicit use. Patient states her care has been here but I was able to find records at [facility] on her. She has a history of lichen planus, hypothyroidism, hyperlipidemia, allergic rhinitis, anemia, migraines, generalized anxiety disorder, ADD, history of alcohol abuse, history of major depression. Medications in her chart include vitamin-D Combivent, hydroxyzine, venlafaxine. She is noted to be status post gastric bypass, cholecystectomy and appendectomy. She has had a laparoscopic ventral incisional hernia repair, remote tubal ligation. She did have an exploratory laparotomy in 2021. Related Data Home Medications ?Medication ?Instructions ?Recorded ?Confirmed No Known Home Medications 01/17/22 01/17/22 No Known Home Medications 02/20/22 03/06/25 Previous Rx's ?Medication ?Instructions ?Recorded hydrocodone 5 mg-acetaminophen 325 1 - 2 tab PO Q6H PRN pain #25 tabs 02/25/22 mg tablet potassium chloride 20 mEq 20 meq PO BID #14 tabs 02/26/22 tablet,extended release Allergies Allergy/AdvReac Type Severity Reaction Status Date / Time No Known Drug Allergies Allergy Verified 03/06/25 20:32 Review of Systems Status of ROS: Reports: 6 or more systems reviewed and unremarkable except as noted in History and below [facility] Anxiety ?F41.9 - Anxiety disorder, unspecified (ICD-10) Depression ?F32.A - Depression, unspecified (ICD-10) Surgical History S/P gastrostomy ?Z93.1 - Gastrostomy status (ICD-10) S/P repair of ventral hernia ?Z98.890 - Other specified postprocedural states (ICD-10) ?Z87.19 - Personal history of other diseases of the digestive system (ICD-10) S/P cholecystectomy ?Z90.49 - Acquired absence of other specified parts of digestive tract (ICD-10) S/P appendectomy ?Z90.49 - Acquired absence of other specified parts of digestive tract (ICD-10) Gastric bypass status for obesity ?Z98.84 - Bariatric surgery status (ICD-10) Social History Narrative: Patient is a smoker, she denies drinking alcohol. She works as a RN [employer]. Highest level of school completed/degree received: Associate degree: occupational, technical, vocational program Smoking Status: Current every day smoker What tobacco products do you use: cigarettes Smoking packs per day: 0.5 Smoking cigarettes per day: 10.0 Years smoked: 12 Smoking pack-years: 6.00 Do you use any of these nicotine containing products: None and Vaping Products Second hand tobacco smoke exposure: No How often do you have a drink containing alcohol: never AUDIT-C Alcohol total score: 0 Non-prescribed substance use: marijuana (any form) Caffeine: Yes (coffee and pop) service: No Exam Const: Vital Signs, click to edit/add: Vital Signs - 24 hr 03/06/25 20:18 Temperature 98.9 F Pulse Rate [Pulse Oximeter] 87 Respiratory Rate 20 Blood Pressure [Ri ght Upper Arm] 119/77 Pulse Oximetry 99 Oxygen Delivery Me thod Room Air This 54-year-old female is seen in exam room 1, she is alert, interactive, no parents stressed. She is of slender stature, almost appears cachectic but looking at her weight in the records, appears stable. Sclera clear, conjugate gaze, symmetrical facial function, lips are dry, oropharynx dry, speech is normal in quality but in character it is pressured at times, tangential. She denies hallucinations both auditory and visual. Next slender, no masses, lungs are clear, wheezing or crackles, no tachypnea, no accessory muscle use. CV regular rate and rhythm, no murmur, normal S1-S2. Abdomen is soft, nontender, no pain with palpation. She has no lower extremity edema, is ambulatory into the ED of her own accord. Documenting provider has reviewed patient's vital signs: yes Course Course ED Course: Will do a head CT in workup of this patient given her headache and personality changes, rule out any intracranial pathology or bleeding. She is not on blood thinner but with history of alcohol use, can sometimes see bleeding without significant trauma. We will give her IV fluids as she clinically does look dry, will do a full metabolic workup and will include a TSH. Do not see that she is on any Synthroid any to make sure that the thyroid is indeed normal. We will do telehealth screening on her. Both patient and her boss independently want to know she will be admitted. Reviewed with them that we need to do the workup, if there is something psychiatric we do not admit that here. We will see with the workup shows and guide therapy accordingly. Reevaluation(s) Time of Reevaluation #1: 22:52 Reevaluation #1: Patient's boss is not in the room. I did discuss with her that she is testing positive for methamphetamine. She states she made very bad choice, her work is being affected by it. I have discussed with her that she needs to stop using methamphetamine. She needs to follow up in clinic, talk about her anxiety and underlying depression, potentially go back on medication for this. She is not holdable, she is not suicidal, not homicidal. She did eat part of a sandwich while here. She does seem like she is potentially coming down from methamphetamines, less tangential, stating she is more tired now. Her speech is less pressured. Consultations Consultation #1: spoke with Russ from telehealth. He met with patient, he is advised that patient is positive for methamphetamines. This did explain a lot of Issues for him. He does not believe the patient is holdable. Her methamphetamine use certainly does explain her speech pattern, her insomnia. I will go back and talk to the patient. Time: 22:37 Vital Signs Vital signs: Initial Vital Signs Temperature 98.9 F 03/06/25 20:18 Temperature Source Temporal Artery Scan 03/06/25 20:18 Pulse Rate 87 03/06/25 20:18 Respiratory Rate 20 03/06/25 20:18 Blood Pressure 119/77 03/06/25 20:18 Blood Pressure Mean 91 03/06/25 20:18 Blood Pressure Position Sitting 03/06/25 20:18 Pulse Oximetry 99 03/06/25 20:18 Oxygen Delivery Method Room Air 03/06/25 20:18 Vital Signs Temperature 98.9 F 03/06/25 20:18 Pulse Rate 87 03/06/25 20:18 Respiratory Rate 20 03/06/25 20:18 Blood Pressure 119/77 03/06/25 20:18 Pulse Oximetry 99 03/06/25 20:18 Oxygen Delivery Method Room Air 03/06/25 20:18 Temperature 98.9 F 03/06/25 20:18 Pulse Rate 87 03/06/25 20:18 Respiratory Rate 20 03/06/25 20:18 Blood Pressure 119/77 03/06/25 20:18 Pulse Oximetry 99 03/06/25 20:18 Oxygen Delivery Method Room Air 03/06/25 20:18 Medical Decision Making Lab Data Lab results reviewed: Yes I reviewed the patient's lab results Lab results narrative: Finger blood glucose was 96 in triage. Labs: Lab Results 03/06/25 03/06/25 Range/Units 21:11 21:46 WBC 7.61 (4.50-11.00) K/uL RBC 4.74 (4.00-5.20) m/uL Hgb 10.4 L (12.0-16.0) gm/dL Hct 34.3 (33.0-51.0) % MCV 72 L (80-100) fL MCH 22 L (26-34) pg MCHC 30 L (32-36) gm/dL RDW Coeff of Wu 18.0 H (11.5-15.5) % Plt Count 521 H (140-440) K/uL Neut % (Auto) 55.9 (42.0-72.0) % Lymph % (Auto) 25.9 (20-44) % [place] % (Auto) 6.6 (0.0-11.0) % Eos % (Auto) 10.1 H (0.0-7.0) % Baso % (Auto) 1.4 (0.0-3.0) % Neut # (Auto) 4.25 (1.7-7.0) K/uL Lymph # (Auto) 1.97 (0.90-2.90) K/uL [place] # (Auto) 0.50 (0.00-0.90) K/UL Eos # (Auto) 0.80 H (0.00-0.50) K/uL Baso # (Auto) 0.11 (0.00-0.30) K/uL Abs Immat Gran (auto) 0.01 (0.00-0.30) K/uL Imm/Tot Granulo (auto) 0.1 % Sodium 137 (135-149) mmol/L Potassium 4.2 (3.6-5.1) mmol/L Chloride 97 (96-114) mmol/L Carbon Dioxide 28 (20-32) mmol/L Anion Gap 12 (7-15) mEq/L BUN 16 (7-30) mg/dL Creatinine 0.8 (0.5-1.5) mg/dL Estimated GFR 87 ml/min Glucose 91 (60-115) mg/dL Calcium 9.4 (8.4-10.6) mg/dL Total Bilirubin 0.6 (0.1-1.5) mg/dL AST 31 (12-35) U/L ALT 21 (4-35) U/L Alkaline Phosphatase 108 (40-150) U/L Total Protein 7.6 (6.0-8.3) g/dL Albumin 4.7 (3.3-5.0) g/dL Salicylates < 1.0 L (1.0-10) mg/dL Urine Opiates Screen Negative (Negative) Ur Oxycodone Screen Negative (Negative) Urine Methadone Screen Negative (Negative) Acetaminophen < 10.0 (10.0-30.0) ug/mL Ur Barbiturates Screen Negative (Negative) U Tricyclic Antidepress Negative (Negative) Ur Phencyclidine Scrn Negative (Negative) Ur Amphetamines Screen POSITIVE A (Negative) U Methamphetamines Scrn POSITIVE A (Negative) U Benzodiazepines Scrn Negative (Negative) Urine Cocaine Screen Negative (Negative) U Marijuana (THC) Screen POSITIVE A (Negative) Ur Drug Screen Comment See Note Ethyl Alcohol < 0.01 (0.01-0.03) % Lab Acknowledgement Test Added Imaging Data CT scan - head: Attestation: I have reviewed the pertinent imaging results. Radiologist's impression: Patient: [facility] Facility:?[facility] Patient ID:?[id number] Site Patient ID:?[id number]. Site :?[id number] Study:?CT-Head W/O-03/06/2025 9:22:11 PM Ordering Physician:?Faustino Martinez Final Report: INDICATION: Headache TECHNIQUE: CT Head without i.v. contrast. Coronal and sagittal reformats were obtained. COMPARISON: None FINDINGS: CSF space: The ventricles are normal for age. Brain: No evidence of mass, acute infarction or hemorrhage is seen. No mass-effect or midline shift is seen. The brain parenchyma is otherwise normal in appearance with preservation of the kilgore-white matter junction. Calvarium: The visualized paranasal sinuses are well aerated. The mastoid air cells are clear. The visualized orbits are grossly unremarkable. The calvarium is unremarkable in appearance with no fractures identified. IMPRESSION: 1. No evidence of acute infarction, intracranial hemorrhage, or mass-effect seen. Please note that all CT scans at this facility use dose modulation, iterative reconstruction, and/or weight-based dosing when appropriate to reduce radiation dose to as low as reasonably achievable. Dictated by: Jamar Sandhu MD @ 03/06/2025 21:34:50 (Electronic Signature) Discharge Plan Discharge Clinical Impression: Methamphetamine use Patient Disposition: Home, Self-Care Condition: Stable Instructions: Methamphetamine Use Disorder (ED) Additional Instructions: Use of methamphetamine certainly does not help with anxiety or depression. Highly advise you to stop using this. I request that you schedule an appointment in clinic for follow-up. You can discuss going back on medication for depression and anxiety with your primary care provider. Activity Level: Activity as Tolerated Discharge Diet: Regular Prescriptions: No Action No Known Home Medications No Known Home Medications hydrocodone-acetaminophen 5-325 mg tablet 1 - 2 tab PO Q6H PRN (Reason: pain) Qty: 25 0RF potassium chloride 20 mEq tablet extended release 20 meq PO BID Qty: 14 0RF Rx Instructions: take with food, repeat lab on 03/01 Follow Up/Referrals: Erica Adrian MD [Primary Care Provider, Family Practice] Stand Alone Forms: [employer] Info Instructions
--- NOTE | 2025-03-06 21:05 | CRLHL7_ITS ---
For Patients: As a result of the Century Cures Act, medical imaging exams and procedure reports are released immediately into your electronic medical record. You may view this report before your referring provider. If you have questions, please contact your health care provider. INDICATION: Headache TECHNIQUE: CT Head without i.v. contrast. Coronal and sagittal reformats were obtained. COMPARISON: None FINDINGS: CSF space: The ventricles are normal for age. Brain: No evidence of mass, acute infarction or hemorrhage is seen. No mass-effect or midline shift is seen. The brain parenchyma is otherwise normal in appearance with preservation of the kilgore-white matter junction. Calvarium: The visualized paranasal sinuses are well aerated. The mastoid air cells are clear. The visualized orbits are grossly unremarkable. The calvarium is unremarkable in appearance with no fractures identified. IMPRESSION: 1. No evidence of acute infarction, intracranial hemorrhage, or mass-effect seen. Please note that all CT scans at this facility use dose modulation, iterative reconstruction, and/or weight-based dosing when appropriate to reduce radiation dose to as low as reasonably achievable. Dictated by: Jamar Sandhu MD @ 03/06/2025 21:34:50 (Electronically Signed)
[2025-03-06 21:53] LABS: Hematocrit* 34.3 % (33.0-51.0); Hemoglobin* 10.4 gm/dL (12.0-16.0); Immature Granulocytes Abs Auto 0.01 K/uL (0.00-0.30); Immature Granulocytes Pct Auto 0.1 %; Lymphocytes Absolute Auto 1.97 K/uL (0.90-2.90); Mean Corpuscular HGB Conc 30 gm/dL (32-36); Mean Corpuscular Hemoglobin 22 pg (26-34); Mean Corpuscular Volume 72 fL (80-100); RDW Coefficient of Variation % 18.0 % (11.5-15.5); Red Blood Count* 4.74 m/uL (4.00-5.20); White Blood Count* 7.61 K/uL (4.50-11.00)
[2025-03-06 21:54] LABS: Slide Review Reflex No
[2025-03-06 22:03] LABS: Cannabinoid Screen Urine POSITIVE (Negative); Methamphetamines Screen Urine POSITIVE (Negative); Tricyclic Antidepressant Urine Negative (Negative)
[2025-03-06 22:09] LABS: Albumin* 4.7 g/dL (3.3-5.0); Chloride* 97 mmol/L (96-114)
[2025-03-06 22:10] LABS: Potassium* 4.2 mmol/L (3.6-5.1); Sodium* 137 mmol/L (135-149)
[2025-03-06 22:12] LABS: Alanine Aminotransferase* 21 U/L (4-35); Anion Gap 12 mEq/L (7-15); Aspartate Amino Transferase* 31 U/L (12-35); Blood Urea Nitrogen* 16 mg/dL (7-30); Carbon Dioxide* 28 mmol/L (20-32); Creatinine* 0.8 mg/dL (0.5-1.5); Estimated Glomerular Filt Rate 87 ml/min; Total Protein* 7.6 g/dL (6.0-8.3)
[2025-03-06 22:13] LABS: Acetaminophen* < 10.0 ug/mL (10.0-30.0); Alkaline Phosphatase* 108 U/L (40-150); Bilirubin Total* 0.6 mg/dL (0.1-1.5); Calcium* 9.4 mg/dL (8.4-10.6); Glucose* 91 mg/dL (60-115); Salicylate* < 1.0 mg/dL (1.0-10)
[2025-03-06 22:14] LABS: Ethanol* < 0.01 % (0.01-0.03)
[2025-03-06 22:44] LABS: TSH With Reflex to FT4* 1.800 uIU/mL (0.270-4.200)
[2025-03-07 00:04] VITALS: BP 119/76; PULSE 76; RESP 18; TEMP 37.1; O2SAT 99
--- NOTE | 2025-03-07 00:23 | ED.NURSE ---
biosecurity officer is going to go to [facility] where pt has her keys for her mobile home. combat systems officer is going to picking belt operator keys for pt and bring them back to the Hospital so pt can go home. Charge nurse indicates to biosecurity officer that he needs to clock out when leaving the campus and then clock back in when he returns to the campus. combat systems officer Ernesto agrees with this plan.
== END 2025-03-07 01:06 | disposition home or self-care (01) ==
PROVIDERS: Emergency Provider Family Medicine; PCP Family Medicine
DX: F15.90 Other stimulant use, unspecified, uncomplicated (principal); F17.210 Nicotine dependence, cigarettes, uncomplicated; G47.00 Insomnia, unspecified; G43.909 Migraine, unspecified, not intractable, without status migrainosus; Z98.84 Bariatric surgery status
CPT/HCPCS: 36415; 70450; 80053; 80143; 80179; 80306; 82077; 84443; 85025; 99284; 99285; Q3014; J7030

== ENCOUNTER 2025-03-07 01:09 | Outpatient (CLI) | payer MEDICAID, SELFPAY | END 2025-03-07 01:10 | disposition home or self-care (01) | PROVIDERS: PCP Family Medicine; Visit Provider Emergency Medicine | DX: F15.90 Other stimulant use, unspecified, uncomplicated (principal); Z99.3 Dependence on wheelchair | CPT/HCPCS: A0425; A0428 ==